=== PATIENT | male | born 1950 | race African-American/Black ===

== ENCOUNTER 2020-11-05 17:14 | Emergency (ER) | payer MEDICARE, OTHER ==
[~2020-11-05] VITALS: Ht 177.8 cm; Wt 54.4 kg
[2020-11-05 18:16] LABS: White Blood Cell 12.1 10^3/uL (4.4-10.8)
[2020-11-05 18:17] LABS: Hemoglobin 8.2 g/dL (13.5-17.5); Mean Corpuscular Hemoglobin 25.1 pg (28.0-32.0); Mean Corpuscular Hgb Conc. 32.7 g/dL (32.0-36.0); Mean Corpuscular Volume 76.8 fL (80.0-100.0); Red Blood Cells 3.26 10^6/uL (4.5-5.90); Red Cell Distribution Width 22.2 % (11.8-14.3)
[2020-11-05 18:19] LABS: Band Neutrophils % (manual) 0; Basophils % (manual) 0 (0.0-2.0); Blast Cells 0; Eosinophils % (manual) 0 (0-7); Metamyelocytes % 0; Myelocytes % 0; Promyelocytes % 0; Reactive Lymphocytes 0
[2020-11-05 18:31] LABS: Albumin 2.4 g/dL (3.4-5.0); Calcium 8.4 mg/dL (8.5-10.1); Potassium 4.2 mmol/L (3.5-5.1)
[2020-11-05 18:35] LABS: BUN/Creatinine Ratio 19.2; Bilirubin, Total 0.1 mg/dL (0.2-1.0); Total Protein 6.6 g/dL (6.4-8.2)
[2020-11-05 20:56] LABS: Lymphocytes % (manual) 20 (10.0-50.0); Monocytes % (manual) 7 (0-12)
[2020-11-05 22:30] VITALS: BP 120/73
[2020-11-06] MEDS ORDERED: LORA0.5T20 GT (16:45)
[2020-11-06] MEDS ORDERED: HYDR-4072 PO (16:45)
[2020-11-06] MEDS ORDERED: LOPE2CAP PO (16:45)
[2020-11-06] MEDS ORDERED: HYOS0.1293 (16:45)
== END 2020-11-05 23:47 | disposition left against medical advice (07) ==
LOC: ER 17:14
DX: I96 Gangrene, not elsewhere classified (principal); M79.671 Pain in right foot; M79.672 Pain in left foot; F17.210 Nicotine dependence, cigarettes, uncomplicated
CPT/HCPCS: 36415; 73562; 73630; 73700; 80053; 83605; 83735; 85007; 85027

== ENCOUNTER 2020-11-06 08:37 | Inpatient (IN) | payer MEDICARE, OTHER ==
[~2020-11-06] VITALS: Ht 177.8 cm; Wt 47.2 kg
[2020-11-06] MEDS ORDERED: SODIUM CHLORIDE 0.9% 1,000 ML IV ONE ×2 (09:00→13:45)
[2020-11-06] MEDS ORDERED: PIPERACILLIN-TAZOB 3.375GM 100 ML IV ONE (09:00)
[2020-11-06 10:19] LABS: Eosinophils # (auto) 0.2 10 ^3/uL (0-0.8); Hematocrit 23.2 % (41.0-53.0); Hemoglobin 7.5 g/dL (13.5-17.5); Mean Corpuscular Hemoglobin 24.7 pg (28.0-32.0); Monocytes # (auto) 1.2 10 ^3/uL (0-1.3)
[2020-11-06 10:20] LABS: Basophils # (auto) 0.2 10 ^3/uL (0-0.2); Basophils % (auto) 1.4 % (0.0-2.0); Eosinophils % (auto) 1.9 % (0.0-7.0); Lymphocytes % (auto) 16.9 % (10.0-50.0); Mean Corpuscular Hgb Conc. 32.1 g/dL (32.0-36.0); Monocytes % (auto) 10.2 % (0.0-12.0); Neutrophils # (auto) 8.4 10 ^3/uL (1.6-8.6); Neutrophils % (auto) 69.6 % (37.0-80.0); Platelet Count (auto) 385 10^3/uL (140-450); Red Blood Cells 3.02 10^6/uL (4.5-5.90); White Blood Cell 12.1 10^3/uL (4.4-10.8)
[2020-11-06 10:22] LABS: Red Cell Distribution Width 22.3 % (11.8-14.3)
[2020-11-06 10:33] LABS: INR 0.96 (0.9-1.15); Partial Thromboplastin Time 25.2 sec (23.0-31.2)
[2020-11-06 10:43] LABS: Albumin 2.2 g/dL (3.4-5.0); Anion Gap 7 (5-15); Blood Urea Nitrogen 13 mg/dL (7-18); Calcium 8.1 mg/dL (8.5-10.1); Carbon Dioxide 27 mmol/L (21-32); Chloride 104 mmol/L (98-107); Glucose 86 mg/dL (74-106); Potassium 3.2 mmol/L (3.5-5.1); Sodium 138 mmol/L (136-145)
[2020-11-06 10:51] LABS: Alanine Aminotransferase 7 U/L (16-61); Alkaline Phosphatase 92 U/L (45-117); Aspartate Aminotransferase 6 U/L (15-37); BUN/Creatinine Ratio 25.5; Bilirubin, Total 0.1 mg/dL (0.2-1.0); GFR African American 208 mL/min; GFR Non-African American 172 mL/min
[2020-11-06] MEDS ORDERED: ONDANSETRON HCL 4 MG/2 ML VIAL IV ONE (11:15)
[2020-11-06] MEDS ORDERED: MORPHINE SULFATE 4 MG/ML SYR/VIAL IV ONE (11:15)
[2020-11-06] MEDS ORDERED: MORPHINE SULF INJ 2 MG/ML SYRINGE 1ML IV PRN (13:30)
[2020-11-06] MEDS ORDERED: NITROGLYCERIN 0.4 MG SL TAB SL PRN (13:30)
[2020-11-06 13:35] LABS: Urine Bacteria MOD /hpf (None Seen); Urine Blood Negative /uL (Negative); Urine Mucus FEW (None Seen); Urine Specific Gravity 1.026 (1.001-1.035); Urine WBC 29 /hpf (0 - 3)
[2020-11-06] MEDS ORDERED: TETANUS-DIPTH-ACEL PERTUSSIS 0.5ML SYR Tdap IM ONE (13:45)
[2020-11-06] MEDS: POTASSIUM CHL 20MEQ/100ML 100 ML IV SCH ×2 (13:45→16:06)
[2020-11-06] MEDS ORDERED: hydrALAZINE HCL 20 MG/ML VL IV PRN (13:45)
[2020-11-06] MEDS ORDERED: LORazepam 2MG/ML-1ML VIAL IV PRN (13:45)
[2020-11-06] MEDS ORDERED: ONDANSETRON HCL 4 MG/2 ML VIAL IV PRN (13:45)
[2020-11-06 14:09] LABS: Hematocrit 24.4 % (41.0-53.0)
[2020-11-06] MEDS: MORPHINE SULF INJ 2 MG/ML SYRINGE 1ML IV PRN ×2 (16:30→19:52)
[2020-11-06] MEDS ORDERED: HYDR-4072 PO (16:45)
[2020-11-06] MEDS ORDERED: HYOS0.1293 (16:45)
[2020-11-06] MEDS ORDERED: LORA0.5T20 GT (16:45)
[2020-11-06] MEDS ORDERED: LOPE2CAP PO (16:45)
[2020-11-06 17:00] VITALS: BP 133/78
[2020-11-06] MEDS: PIPERACILLIN-TAZOB 3.375GM 100 ML IV SCH (17:38)
[2020-11-06 20:00] VITALS: BP 125/53
[2020-11-06] MEDS: PANTOPRAZOLE 40 MG/10 ML VIAL INJ IV SCH (21:57)
[2020-11-06 22:00] VITALS: BP 125/53
[2020-11-06 22:37] LABS: Hematocrit 25.5 % (41.0-53.0); Hemoglobin 8.2 g/dL (13.5-17.5)
[2020-11-07] MEDS: PIPERACILLIN-TAZOB 3.375GM 100 ML IV SCH ×4 (00:05→18:29)
[2020-11-07 01:38] LABS: Hematocrit 25.9 % (41.0-53.0); Hemoglobin 8.2 g/dL (13.5-17.5)
[2020-11-07 05:01] VITALS: BP 140/85
[2020-11-07 05:46] LABS: Basophils # (auto) 0.1 10 ^3/uL (0-0.2); Eosinophils # (auto) 0.2 10 ^3/uL (0-0.8); Hemoglobin 8.6 g/dL (13.5-17.5)
[2020-11-07 05:48] LABS: Basophils % (auto) 0.7 % (0.0-2.0); Eosinophils % (auto) 1.8 % (0.0-7.0); Hematocrit 25.6 % (41.0-53.0); Lymphocytes # (auto) 2.2 10 ^3/uL (0.4-5.4); Lymphocytes % (auto) 19.4 % (10.0-50.0); Mean Corpuscular Hemoglobin 25.8 pg (28.0-32.0); Mean Corpuscular Hgb Conc. 33.5 g/dL (32.0-36.0); Mean Corpuscular Volume 77.1 fL (80.0-100.0); Monocytes # (auto) 1.1 10 ^3/uL (0-1.3); Neutrophils # (auto) 7.9 10 ^3/uL (1.6-8.6); Neutrophils % (auto) 68.1 % (37.0-80.0); Nucleated Red Blood Cells % 0.1 %; Platelet Count (auto) 434 10^3/uL (140-450); Red Blood Cells 3.33 10^6/uL (4.5-5.90); White Blood Cell 11.5 10^3/uL (4.4-10.8)
[2020-11-07 06:04] LABS: Potassium 3.9 mmol/L (3.5-5.1); Red Cell Distribution Width 22.7 % (11.8-14.3)
[2020-11-07 06:24] LABS: Albumin 2.2 g/dL (3.4-5.0); BUN/Creatinine Ratio 16.7; Bilirubin, Total 0.3 mg/dL (0.2-1.0); Calcium 8.5 mg/dL (8.5-10.1); Total Protein 6.3 g/dL (6.4-8.2)
[2020-11-07 08:00] VITALS: BP 140/85
[2020-11-07 08:42] VITALS: BP 123/83
[2020-11-07] MEDS: PANTOPRAZOLE 40 MG/10 ML VIAL INJ IV SCH ×2 (09:16→22:55)
[2020-11-07] MEDS: ENOXAPARIN SOD 40 MG/0.4 ML SYRINGE SC SCH (09:16)
[2020-11-07] MEDS: MORPHINE SULF INJ 2 MG/ML SYRINGE 1ML IV PRN ×3 (09:17→23:08)
[2020-11-07 09:58] LABS: Cholesterol 156 mg/dL (< 200); Triglycerides 107 mg/dL (< 150)
[2020-11-07] MEDS: ASPirin 81 mg TAB PO SCH (10:00)
[2020-11-07 10:01] LABS: HDL Cholesterol 54 mg/dL (40-59); LDL Cholesterol 86 mg/dL (< 100)
[2020-11-07] MEDS: NICOTINE 14 MG/24HR TOPICAL PATCH TD ONE ×2 (12:45→17:58)
[2020-11-07 13:00] VITALS: BP 103/71
[2020-11-07 14:15] LABS: Hemoglobin 8.5 g/dL (13.5-17.5)
[2020-11-07 17:00] VITALS: BP 97/67
[2020-11-07 19:26] LABS: Hematocrit 24.6 % (41.0-53.0)
[2020-11-07] MEDS: NICOTINE 21MG/24 HR TOPICAL PATCH TD SCH (21:41)
[2020-11-07 22:00] VITALS: BP 102/58
[2020-11-07] MEDS: ATORVASTATIN 20 MG TAB PO SCH (22:55)
[2020-11-08] MEDS: PIPERACILLIN-TAZOB 3.375GM 100 ML IV SCH ×5 (00:04→23:31)
[2020-11-08 02:39] LABS: Hematocrit 22.3 % (41.0-53.0); Hemoglobin 7.5 g/dL (13.5-17.5)
[2020-11-08] MEDS: MORPHINE SULF INJ 2 MG/ML SYRINGE 1ML IV PRN ×2 (03:21→10:10)
[2020-11-08 05:00] VITALS: BP 101/73
[2020-11-08 06:31] LABS: Hemoglobin 7.5 g/dL (13.5-17.5); White Blood Cell 9.1 10^3/uL (4.4-10.8)
[2020-11-08 06:36] LABS: Hematocrit 22.9 % (41.0-53.0); Mean Corpuscular Hemoglobin 25.5 pg (28.0-32.0); Mean Corpuscular Hgb Conc. 32.9 g/dL (32.0-36.0); Mean Corpuscular Volume 77.5 fL (80.0-100.0); Platelet Count (auto) 456 10^3/uL (140-450); Red Blood Cells 2.95 10^6/uL (4.5-5.90)
[2020-11-08 06:38] LABS: Calcium 8.6 mg/dL (8.5-10.1); Potassium 3.8 mmol/L (3.5-5.1)
[2020-11-08 06:40] LABS: BUN/Creatinine Ratio 20.4
[2020-11-08 06:53] LABS: Basophils % (manual) 0 (0.0-2.0); Blast Cells 0; Metamyelocytes % 0; Myelocytes % 0; Promyelocytes % 0; Reactive Lymphocytes 0
[2020-11-08 09:00] VITALS: BP 101/62
[2020-11-08 09:55] LABS: Band Neutrophils % (manual) 2; Eosinophils % (manual) 2 (0-7); Lymphocytes % (manual) 20 (10.0-50.0); Monocytes % (manual) 7 (0-12)
[2020-11-08] MEDS ORDERED: NICOTINE 14 MG/24HR TOPICAL PATCH TD SCH (10:00)
[2020-11-08] MEDS: ENOXAPARIN SOD 40 MG/0.4 ML SYRINGE SC SCH (10:00)
[2020-11-08] MEDS: PANTOPRAZOLE 40 MG/10 ML VIAL INJ IV SCH ×2 (10:07→21:51)
[2020-11-08] MEDS: DOCUSATE SOD 100 MG CAP PO SCH ×2 (10:07→21:51)
[2020-11-08] MEDS: ASPirin 81 mg TAB PO SCH (10:08)
[2020-11-08] MEDS: NICOTINE 21MG/24 HR TOPICAL PATCH TD SCH (10:09)
[2020-11-08] MEDS ORDERED: LACTULOSE 20Gm/30ML SOLN PO PRN (11:15)
[2020-11-08 13:00] VITALS: BP 115/70
[2020-11-08 13:47] LABS: Hematocrit 24.4 % (41.0-53.0); Hemoglobin 7.9 g/dL (13.5-17.5)
[2020-11-08 16:40] VITALS: BP 119/76
[2020-11-08] MEDS: IBUPROFEN 600 MG TAB PO SCH ×2 (17:14→21:52)
[2020-11-08 19:58] LABS: Hematocrit 23.9 % (41.0-53.0)
[2020-11-08] MEDS: ATORVASTATIN 20 MG TAB PO SCH (21:51)
[2020-11-08 22:00] VITALS: BP 95/63
[2020-11-09 05:00] VITALS: BP 105/63
[2020-11-09] MEDS: IBUPROFEN 600 MG TAB PO SCH ×4 (06:03→21:28)
[2020-11-09] MEDS: PIPERACILLIN-TAZOB 3.375GM 100 ML IV SCH ×3 (06:03→18:41)
[2020-11-09 06:50] LABS: Basophils # (auto) 0 10 ^3/uL (0-0.2); Eosinophils # (auto) 0.2 10 ^3/uL (0-0.8); Hemoglobin 7.9 g/dL (13.5-17.5); White Blood Cell 9.3 10^3/uL (4.4-10.8)
[2020-11-09 06:54] LABS: Basophils % (auto) 0.4 % (0.0-2.0); Eosinophils % (auto) 2.1 % (0.0-7.0); Lymphocytes # (auto) 2.1 10 ^3/uL (0.4-5.4); Lymphocytes % (auto) 22.7 % (10.0-50.0); Mean Corpuscular Hgb Conc. 32.9 g/dL (32.0-36.0); Mean Corpuscular Volume 76.1 fL (80.0-100.0); Monocytes % (auto) 10.6 % (0.0-12.0); Neutrophils % (auto) 64.2 % (37.0-80.0); Nucleated Red Blood Cells % 0.1 %; Platelet Count (auto) 518 10^3/uL (140-450); Red Blood Cells 3.16 10^6/uL (4.5-5.90); Red Cell Distribution Width 22.8 % (11.8-14.3)
[2020-11-09 07:11] LABS: Calcium 8.7 mg/dL (8.5-10.1); Potassium 3.8 mmol/L (3.5-5.1)
[2020-11-09 07:13] LABS: BUN/Creatinine Ratio 20.7
[2020-11-09 09:00] VITALS: BP 100/62
[2020-11-09] MEDS: ENOXAPARIN SOD 40 MG/0.4 ML SYRINGE SC SCH (09:56)
[2020-11-09] MEDS: PANTOPRAZOLE 40 MG/10 ML VIAL INJ IV SCH ×2 (10:14→21:27)
[2020-11-09] MEDS: DOCUSATE SOD 100 MG CAP PO SCH ×2 (10:14→21:27)
[2020-11-09] MEDS: NICOTINE 21MG/24 HR TOPICAL PATCH TD SCH (10:15)
[2020-11-09] MEDS: ASPirin 81 mg TAB PO SCH (10:45)
[2020-11-09 13:00] VITALS: BP 106/71
[2020-11-09 17:00] VITALS: BP 110/67
[2020-11-09 20:00] VITALS: BP 93/63
[2020-11-09] MEDS: ATORVASTATIN 20 MG TAB PO SCH (21:27)
[2020-11-09 22:00] VITALS: BP 93/63
[2020-11-10] VITALS (7 sets, daily range): BP systolic 91–124; BP diastolic 55–81
[2020-11-10] MEDS: PIPERACILLIN-TAZOB 3.375GM 100 ML IV SCH ×5 (00:19→23:34)
[2020-11-10 03:03] LABS: INR 0.93 (0.9-1.15)
[2020-11-10] MEDS: IBUPROFEN 600 MG TAB PO SCH ×4 (06:03→21:41)
[2020-11-10 06:50] LABS: Basophils # (auto) 0.1 10 ^3/uL (0-0.2); Eosinophils # (auto) 0.2 10 ^3/uL (0-0.8); White Blood Cell 8.5 10^3/uL (4.4-10.8)
[2020-11-10 07:04] LABS: Eosinophils % (auto) 2.7 % (0.0-7.0); Hematocrit 24.7 % (41.0-53.0); Hemoglobin 8.2 g/dL (13.5-17.5); INR 0.95 (0.9-1.15); Lymphocytes # (auto) 1.8 10 ^3/uL (0.4-5.4); Lymphocytes % (auto) 21.6 % (10.0-50.0); Mean Corpuscular Hemoglobin 25.3 pg (28.0-32.0); Mean Corpuscular Hgb Conc. 33.4 g/dL (32.0-36.0); Mean Corpuscular Volume 75.9 fL (80.0-100.0); Monocytes # (auto) 1.1 10 ^3/uL (0-1.3); Monocytes % (auto) 12.7 % (0.0-12.0); Neutrophils # (auto) 5.3 10 ^3/uL (1.6-8.6); Partial Thromboplastin Time 24.4 sec (23.0-31.2); Platelet Count (auto) 592 10^3/uL (140-450); Red Blood Cells 3.25 10^6/uL (4.5-5.90)
[2020-11-10 07:05] LABS: Red Cell Distribution Width 22.9 % (11.8-14.3)
[2020-11-10 07:12] LABS: BUN/Creatinine Ratio 24.1; Calcium 9.3 mg/dL (8.5-10.1)
[2020-11-10] MEDS: ENOXAPARIN SOD 40 MG/0.4 ML SYRINGE SC SCH (09:49)
[2020-11-10] MEDS ORDERED: IODIXANOL 320MG/ML 100ML BTL IV ONE (10:25)
[2020-11-10] MEDS ORDERED: LIDOCAINE 2%HCL (LOCAL ANESTH.) INJ 20ML MDV ONE (10:25)
[2020-11-10] MEDS ORDERED: fentaNYL CITRATE 100 MCG/2 ML VL ONE (10:31)
[2020-11-10] MEDS ORDERED: ANGIOMAX 250 MG VIAL IV ONE (10:31)
[2020-11-10] MEDS ORDERED: MIDAZOLAM HCL 1MG/1ML-2 ML VIAL ONE (10:32)
[2020-11-10] MEDS ORDERED: SODIUM CHL 0.9% 50 ML ONE (10:32)
[2020-11-10] MEDS ORDERED: diphenhdrAMINE HCL 50 MG/1 ML VL ONE (10:58)
[2020-11-10] MEDS ORDERED: ACETAMINOPHEN 500 MG TAB PO PRN (12:45)
[2020-11-10] MEDS ORDERED: ONDANSETRON HCL 4 MG/2 ML VIAL IV PRN (12:45)
[2020-11-10] MEDS: PANTOPRAZOLE 40 MG/10 ML VIAL INJ IV SCH ×2 (14:08→21:41)
[2020-11-10] MEDS: DOCUSATE SOD 100 MG CAP PO SCH ×2 (14:08→21:42)
[2020-11-10] MEDS: NICOTINE 21MG/24 HR TOPICAL PATCH TD SCH (14:10)
[2020-11-10] MEDS: SODIUM CHLOR 0.9% PF (SALINE LOCK) 10ML VIAL/SYR IV SCH ×2 (14:11→21:41)
[2020-11-10] MEDS: ASPirin 81 mg TAB PO SCH (14:12)
[2020-11-10] MEDS: ATORVASTATIN 20 MG TAB PO SCH (21:41)
[2020-11-11 05:00] VITALS: BP 108/65
[2020-11-11] MEDS: SODIUM CHLOR 0.9% PF (SALINE LOCK) 10ML VIAL/SYR IV SCH ×3 (05:59→21:48)
[2020-11-11] MEDS: PIPERACILLIN-TAZOB 3.375GM 100 ML IV SCH ×3 (05:59→17:52)
[2020-11-11] MEDS: IBUPROFEN 600 MG TAB PO SCH ×4 (06:00→21:48)
[2020-11-11 08:00] LABS: Basophils # (auto) 0.1 10 ^3/uL (0-0.2); Basophils % (auto) 0.7 % (0.0-2.0); Eosinophils # (auto) 0.2 10 ^3/uL (0-0.8); Hemoglobin 7.2 g/dL (13.5-17.5)
[2020-11-11 08:02] LABS: Eosinophils % (auto) 2.2 % (0.0-7.0); Hematocrit 21.9 % (41.0-53.0); Lymphocytes % (auto) 20.3 % (10.0-50.0); Mean Corpuscular Hemoglobin 25.1 pg (28.0-32.0); Mean Corpuscular Hgb Conc. 32.8 g/dL (32.0-36.0); Mean Corpuscular Volume 76.7 fL (80.0-100.0); Monocytes # (auto) 1.4 10 ^3/uL (0-1.3); Monocytes % (auto) 13.9 % (0.0-12.0); Neutrophils # (auto) 6.2 10 ^3/uL (1.6-8.6); Neutrophils % (auto) 62.9 % (37.0-80.0); Platelet Count (auto) 632 10^3/uL (140-450); Red Blood Cells 2.86 10^6/uL (4.5-5.90); White Blood Cell 9.9 10^3/uL (4.4-10.8)
[2020-11-11 08:08] LABS: Red Cell Distribution Width 23.6 % (11.8-14.3)
[2020-11-11 08:22] LABS: Calcium 8.3 mg/dL (8.5-10.1); Potassium 3.5 mmol/L (3.5-5.1)
[2020-11-11 09:00] VITALS: BP 108/65
[2020-11-11] MEDS: CLOPIDOGREL BISULFATE 75 MG TAB PO SCH (10:00)
[2020-11-11] MEDS: ENOXAPARIN SOD 40 MG/0.4 ML SYRINGE SC SCH (10:00)
[2020-11-11] MEDS: DOCUSATE SOD 100 MG CAP PO SCH ×3 (10:00→21:55)
[2020-11-11] MEDS: PANTOPRAZOLE 40 MG/10 ML VIAL INJ IV SCH ×2 (10:50→21:48)
[2020-11-11] MEDS: ASPirin 81 mg TAB PO SCH (10:50)
[2020-11-11] MEDS: NICOTINE 21MG/24 HR TOPICAL PATCH TD SCH (10:53)
[2020-11-11 12:49] VITALS: BP 110/69
[2020-11-11 16:46] VITALS: BP 126/76
[2020-11-11 20:00] VITALS: BP 105/69
[2020-11-11] MEDS: ATORVASTATIN 20 MG TAB PO SCH (21:48)
[2020-11-11 22:00] VITALS: BP 105/69
[2020-11-12] MEDS: PIPERACILLIN-TAZOB 3.375GM 100 ML IV SCH ×3 (00:09→12:00)
[2020-11-12 05:00] VITALS: BP 114/71
[2020-11-12] MEDS: SODIUM CHLOR 0.9% PF (SALINE LOCK) 10ML VIAL/SYR IV SCH (05:31)
[2020-11-12] MEDS: IBUPROFEN 600 MG TAB PO SCH ×2 (06:15→12:27)
[2020-11-12 06:24] LABS: Basophils # (auto) 0.1 10 ^3/uL (0-0.2); Basophils % (auto) 0.7 % (0.0-2.0); Eosinophils # (auto) 0.3 10 ^3/uL (0-0.8); Eosinophils % (auto) 3.1 % (0.0-7.0); Hematocrit 24.3 % (41.0-53.0); Hemoglobin 7.8 g/dL (13.5-17.5); Lymphocytes # (auto) 2.4 10 ^3/uL (0.4-5.4); Lymphocytes % (auto) 23.7 % (10.0-50.0); Mean Corpuscular Hemoglobin 24.7 pg (28.0-32.0); Mean Corpuscular Hgb Conc. 32.2 g/dL (32.0-36.0); Mean Corpuscular Volume 76.8 fL (80.0-100.0); Monocytes # (auto) 1.2 10 ^3/uL (0-1.3); Monocytes % (auto) 12.4 % (0.0-12.0); Neutrophils % (auto) 60.1 % (37.0-80.0); Platelet Count (auto) 747 10^3/uL (140-450); Red Blood Cells 3.16 10^6/uL (4.5-5.90); White Blood Cell 9.9 10^3/uL (4.4-10.8)
[2020-11-12 06:25] LABS: BUN/Creatinine Ratio 25.4; Calcium 8.9 mg/dL (8.5-10.1)
[2020-11-12 06:55] LABS: Red Cell Distribution Width 23.7 % (11.8-14.3)
[2020-11-12] MEDS ORDERED: ceFAZolin 1GM/50ML 50 ML IV ONE (07:55)
[2020-11-12 09:00] VITALS: BP 112/66
[2020-11-12] MEDS ORDERED: ceFAZolin 1GM VL ONE (09:12)
[2020-11-12] MEDS ORDERED: ROPIVACAINE 0.5% (5MG/ML) 20ML AMPULE IJ ONE (09:12)
[2020-11-12] MEDS ORDERED: LABETALOL HCL 5 MG/ML 4ML SYRINGE IV PRN (09:30)
[2020-11-12] MEDS ORDERED: ePHEDrine SULFATE 50 MG/ML AMP IV PRN (09:30)
[2020-11-12] MEDS ORDERED: MORPHINE SULFATE 4 MG/ML SYR/VIAL IV PRN (09:30)
[2020-11-12] MEDS ORDERED: MIDAZOLAM HCL 1MG/1ML-2 ML VIAL IV PRN (09:30)
[2020-11-12] MEDS ORDERED: ONDANSETRON HCL 4 MG/2 ML VIAL IV PRN (09:30)
[2020-11-12] MEDS ORDERED: ACCU-CHEK COMFORT CURVE STRIP VI ONE (09:30)
[2020-11-12] MEDS ORDERED: MIDAZOLAM HCL 1MG/1ML-2 ML VIAL ONE (09:35)
[2020-11-12] MEDS ORDERED: fentaNYL CITRATE 100 MCG/2 ML VL ONE (09:35)
[2020-11-12] MEDS ORDERED: MEPERIDINE HCL (25 MG/ML) 1ML VIAL ONE (09:35)
[2020-11-12] MEDS ORDERED: DexAMETHasone SOD PHOS 10MG/1ML VIAL INJ ONE (09:38)
[2020-11-12] MEDS ORDERED: PROPOFOL 10 MG/ML 20 ML IV ONE (09:48)
[2020-11-12] MEDS: ENOXAPARIN SOD 40 MG/0.4 ML SYRINGE SC SCH (10:00)
[2020-11-12] MEDS: DOCUSATE SOD 100 MG CAP PO SCH (10:00)
[2020-11-12] MEDS: PANTOPRAZOLE 40 MG/10 ML VIAL INJ IV SCH (10:00)
[2020-11-12] MEDS ORDERED: AMOX500T86 PO (11:55)
[2020-11-12] MEDS: NICOTINE 21MG/24 HR TOPICAL PATCH TD SCH (12:27)
[2020-11-12] MEDS: CLOPIDOGREL BISULFATE 75 MG TAB PO SCH (12:27)
[2020-11-12 13:00] VITALS: BP 108/72
[2020-11-12] MEDS ORDERED: ATOR20TA50 PO (13:18)
[2020-11-12] MEDS ORDERED: CLOP75TA28 PO (13:18)
== END 2020-11-12 14:45 | disposition home or self-care (01) | DRG 853 ==
LOC: ER 08:37 → TELE 08:38 → TELE-EAST 15:57 → TELE-WESTW 11-07 10:23
PROVIDERS: ADMIT Family Medicine; ATTEND Internal Medicine Pulmonary Disease
PROC: 047K3Z1 Dilation of Right Femoral Artery using Drug-Coated Balloon, Percutaneous Approach (ICD-10-PCS; principal; 2020-11-10)
PROC: 04CK3ZZ Extirpation of Matter from Right Femoral Artery, Percutaneous Approach (ICD-10-PCS; 2020-11-10)
PROC: B41 Imaging, Lower Arteries, Fluoroscopy (ICD-10-PCS; 2020-11-10)
PROC: 0Y6P0Z0 Detachment at Right 1st Toe, Complete, Open Approach (ICD-10-PCS; 2020-11-12)
PROC: 0Y6R0Z0 Detachment at Right 2nd Toe, Complete, Open Approach (ICD-10-PCS; 2020-11-12)
DX: A41.9 Sepsis, unspecified organism (principal); N17.0 Acute kidney failure with tubular necrosis; E44.0 Moderate protein-calorie malnutrition; D62 Acute posthemorrhagic anemia; I70.261 Atherosclerosis of native arteries of extremities with gangrene, right leg; E87.1 Hypo-osmolality and hyponatremia; Z68.1 Body mass index [BMI] 19.9 or less, adult; M19.90 Unspecified osteoarthritis, unspecified site; I77.1 Stricture of artery; M20.12 Hallux valgus (acquired), left foot; E87.6 Hypokalemia; Z20.822 Contact with and (suspected) exposure to COVID-19; D50.9 Iron deficiency anemia, unspecified; M20.11 Hallux valgus (acquired), right foot; S92.912A Unspecified fracture of left toe(s), initial encounter for closed fracture; W06.XXXA Fall from bed, initial encounter; F17.210 Nicotine dependence, cigarettes, uncomplicated; K59.00 Constipation, unspecified; N18.9 Chronic kidney disease, unspecified; Z71.6 Tobacco abuse counseling; Z23 Encounter for immunization; Z74.01 Bed confinement status; Z83.3 Family history of diabetes mellitus; Z85.038 Personal history of other malignant neoplasm of large intestine; Z99.3 Dependence on wheelchair; Y93.89 Activity, other specified; Y92.89 Other specified places as the place of occurrence of the external cause; Y99.8 Other external cause status
CPT/HCPCS: 36415; 37224; 71045; 73562; 73630; 73700; 80048; 80053; 80061; 81001; 82270; 83605; 83735; 84443; 84484; 85007; 85014; 85018; 85025; 85027; 85610; 85730; 86850; 86900; 86901; 87040; 87426; 90715; 93925; 96365; 96366; 99152; C9113; G0378; J0690; J1100; J2250; J2405; J2543; J2704; J3480; Q9967

== ENCOUNTER 2020-12-18 18:17 | Inpatient (IN) | payer MEDICARE, OTHER ==
[~2020-12-18] VITALS: Ht 175.3 cm; Wt 51.3 kg
[~2020-12-18 18:17] MED LIST: AMOX500T86 PO; ATOR20TA50 PO; CLOP75TA28 PO; HYDR-4072 PO; HYOS0.1293; LOPE2CAP PO; LORA0.5T20 GT
[2020-12-18 19:46] LABS: Basophils # (auto) 0.1 10 ^3/uL (0-0.2); Basophils % (auto) 1.4 % (0.0-2.0); Eosinophils # (auto) 0.3 10 ^3/uL (0-0.8); Hematocrit 22.5 % (41.0-53.0); Lymphocytes # (auto) 3.1 10 ^3/uL (0.4-5.4); Lymphocytes % (auto) 34.4 % (10.0-50.0); Mean Corpuscular Hemoglobin 24.3 pg (28.0-32.0); Mean Corpuscular Hgb Conc. 30.7 g/dL (32.0-36.0); Mean Corpuscular Volume 79.2 fL (80.0-100.0); Monocytes % (auto) 11.1 % (0.0-12.0); Neutrophils # (auto) 4.6 10 ^3/uL (1.6-8.6); Neutrophils % (auto) 50.1 % (37.0-80.0); Nucleated Red Blood Cells % 0.8 %; Red Blood Cells 2.83 10^6/uL (4.5-5.90); White Blood Cell 9.1 10^3/uL (4.4-10.8)
[2020-12-18 19:48] LABS: INR 0.96 (0.9-1.15); Partial Thromboplastin Time 23.9 sec (23.0-31.2)
[2020-12-18 19:51] LABS: Hemoglobin 6.9 g/dL (13.5-17.5)
[2020-12-18 19:53] LABS: Albumin 2.8 g/dL (3.4-5.0); Anion Gap 12 (5-15); Blood Urea Nitrogen 9 mg/dL (7-18); Calcium 8.1 mg/dL (8.5-10.1); Carbon Dioxide 23 mmol/L (21-32); Chloride 110 mmol/L (98-107); Glucose 55 mg/dL (74-106); Potassium 3.8 mmol/L (3.5-5.1); Sodium 145 mmol/L (136-145)
[2020-12-18 19:59] LABS: Alanine Aminotransferase 12 U/L (16-61); Alkaline Phosphatase 135 U/L (45-117); Aspartate Aminotransferase 20 U/L (15-37); Bilirubin, Total 0.1 mg/dL (0.2-1.0); GFR African American 147 mL/min; GFR Non-African American 121 mL/min; Total Protein 6.9 g/dL (6.4-8.2)
[2020-12-18 23:00] VITALS: BP 127/76
[2020-12-18 23:19] VITALS: BP 131/80
[2020-12-18] MEDS ORDERED: IBUPROFEN 600 MG TAB PO ONE (23:45)
[2020-12-19] VITALS (11 sets, daily range): BP systolic 115–146; BP diastolic 66–90
[2020-12-19] MEDS ORDERED: ACETAMINOPHEN 325 MG TAB PO PRN (01:45)
[2020-12-19] MEDS ORDERED: DOCUSATE SOD 100 MG CAP PO PRN (01:45)
[2020-12-19] MEDS ORDERED: MORPHINE SULFATE INJECTION 2 MG/ML SYRG IV PRN (01:45)
[2020-12-19] MEDS ORDERED: DEXTROSE (50%) 50ML SYRG IV PRN (01:45)
[2020-12-19] MEDS ORDERED: D5W/SOD CHL 0.45% 1,000 ML IV SCH (01:45)
[2020-12-19] MEDS ORDERED: NITROGLYCERIN 0.4 MG SL TAB SL PRN (01:45)
[2020-12-19] MEDS: HYDROcodone-ACET 5/325MG TAB PO PRN ×3 (03:46→21:27)
[2020-12-19] MEDS ORDERED: PNEUMOCOCCAL VACC POLYS 25 MCG/0.5 ML VIAL IM ONE (04:30)
[2020-12-19] MEDS ORDERED: INFLUENZA QUAD 2020-2021 0.5 ML SYRG IM ONE (04:30)
[2020-12-19] MEDS ORDERED: GABA300C10 PO (04:39)
[2020-12-19] MEDS: SODIUM CHLOR 0.9% PF (SALINE LOCK) 10ML VIAL/SYR IV SCH ×3 (05:28→21:19)
[2020-12-19] MEDS ORDERED: IBUP600T27 PO (06:03)
[2020-12-19] MEDS: InsuLIN REG 1unit/0.01ml Soln (100units/ml) SC SCH ×2 (06:04→11:30)
[2020-12-19] MEDS: ACCU-CHEK COMFORT CURVE STRIP VI SCH ×2 (06:04→11:30)
[2020-12-19 08:12] LABS: Basophils # (auto) 0.1 10 ^3/uL (0-0.2); Eosinophils # (auto) 0.2 10 ^3/uL (0-0.8); Lymphocytes # (auto) 1.9 10 ^3/uL (0.4-5.4); Monocytes # (auto) 1.4 10 ^3/uL (0-1.3); Monocytes % (auto) 14.3 % (0.0-12.0); Red Cell Distribution Width 19.7 % (11.8-14.3)
[2020-12-19 08:14] LABS: Basophils % (auto) 0.9 % (0.0-2.0); Eosinophils % (auto) 2.2 % (0.0-7.0); Hemoglobin 9.5 g/dL (13.5-17.5); Lymphocytes % (auto) 20.6 % (10.0-50.0); Mean Corpuscular Hemoglobin 26.2 pg (28.0-32.0); Mean Corpuscular Hgb Conc. 32.9 g/dL (32.0-36.0); Mean Corpuscular Volume 79.7 fL (80.0-100.0); Neutrophils # (auto) 5.8 10 ^3/uL (1.6-8.6); Nucleated Red Blood Cells % 0.7 %; Red Blood Cells 3.64 10^6/uL (4.5-5.90); White Blood Cell 9.4 10^3/uL (4.4-10.8)
[2020-12-19 08:20] LABS: % Iron Saturation 6.3 % (20-55); Albumin 2.6 g/dL (3.4-5.0); Calcium 7.9 mg/dL (8.5-10.1); Potassium 3.7 mmol/L (3.5-5.1)
[2020-12-19 08:23] LABS: BUN/Creatinine Ratio 24.5; Bilirubin, Total 0.3 mg/dL (0.2-1.0); Total Protein 6.5 g/dL (6.4-8.2)
[2020-12-19] MEDS ORDERED: ZINC SULFATE 220mg CAP or TAB PO SCH (10:00)
[2020-12-19] MEDS ORDERED: ENOXAPARIN SOD 40 MG/0.4 ML SYRINGE SC SCH (10:00)
[2020-12-19] MEDS ORDERED: ASCORBIC ACID 500 MG TAB PO SCH (10:00)
[2020-12-19] MEDS ORDERED: FAMOTIDINE 20 MG TAB PO SCH (10:00)
[2020-12-19] MEDS ORDERED: MULTIPLE VITAMIN TAB PO SCH (10:00)
[2020-12-19 10:03] LABS: Folate (Folic Acid) 8.59 ng/mL (5.38-24)
[2020-12-19 12:55] LABS: Urine Blood Negative /uL (Negative); Urine Specific Gravity 1.028 (1.001-1.035)
[2020-12-19 12:57] LABS: Urine WBC 2 /hpf (0 - 3)
[2020-12-19 12:58] LABS: Urine Bacteria MOD /hpf (None Seen)
[2020-12-19] MEDS ORDERED: CYANOCOBALAMIN (B-12) 1000 MCG/1 ML VIAL SUBCUT ONE (18:15)
[2020-12-19] MEDS: PANTOPRAZOLE 40 MG/10 ML VIAL INJ IV SCH (21:19)
[2020-12-20 05:00] VITALS: BP 143/86
[2020-12-20] MEDS: SODIUM CHLOR 0.9% PF (SALINE LOCK) 10ML VIAL/SYR IV SCH ×3 (05:47→21:15)
[2020-12-20 07:44] LABS: Basophils # (auto) 0.1 10 ^3/uL (0-0.2); Basophils % (auto) 0.6 % (0.0-2.0); Lymphocytes # (auto) 2.1 10 ^3/uL (0.4-5.4); Mean Corpuscular Hemoglobin 25.7 pg (28.0-32.0); Monocytes # (auto) 1.2 10 ^3/uL (0-1.3); Nucleated Red Blood Cells % 0.1 %; Red Cell Distribution Width 19.7 % (11.8-14.3)
[2020-12-20 07:46] LABS: Eosinophils # (auto) 0.2 10 ^3/uL (0-0.8); Eosinophils % (auto) 1.5 % (0.0-7.0); Hematocrit 30.2 % (41.0-53.0); Hemoglobin 9.8 g/dL (13.5-17.5); Mean Corpuscular Hgb Conc. 32.6 g/dL (32.0-36.0); Mean Corpuscular Volume 78.8 fL (80.0-100.0); Monocytes % (auto) 11.2 % (0.0-12.0); Neutrophils # (auto) 7.6 10 ^3/uL (1.6-8.6); Neutrophils % (auto) 67.7 % (37.0-80.0); Red Blood Cells 3.83 10^6/uL (4.5-5.90); White Blood Cell 11.2 10^3/uL (4.4-10.8)
[2020-12-20 07:59] LABS: Albumin 2.7 g/dL (3.4-5.0); Calcium 8.6 mg/dL (8.5-10.1); Cholesterol 151 mg/dL (< 200); Potassium 3.6 mmol/L (3.5-5.1)
[2020-12-20 08:01] LABS: HDL Cholesterol 66 mg/dL (40-59); LDL Cholesterol 68 mg/dL (< 100); Triglycerides 105 mg/dL (< 150)
[2020-12-20 08:03] LABS: BUN/Creatinine Ratio 18.4; Bilirubin, Total 0.3 mg/dL (0.2-1.0); Total Protein 6.7 g/dL (6.4-8.2)
[2020-12-20 08:36] VITALS: BP 135/81
[2020-12-20] MEDS: PANTOPRAZOLE 40 MG/10 ML VIAL INJ IV SCH (08:51)
[2020-12-20] MEDS ORDERED: LIDOCAINE VISCOUS 2% 15ML UD ONE (08:55)
[2020-12-20] MEDS ORDERED: SODIUM CHLORIDE LOCK 10 ML ONE (08:55)
[2020-12-20] MEDS ORDERED: diphenhdrAMINE HCL 50 MG/1 ML VL ONE (08:57)
[2020-12-20] MEDS: fentaNYL CITRATE 100 MCG/2 ML VL ONE ×2 (09:18→09:23)
[2020-12-20] MEDS: MIDAZOLAM HCL 5 MG/ML-1ML VIAL ONE ×2 (09:18→09:23)
[2020-12-20] MEDS: PANTOPRAZOLE 40 MG TAB PO SCH ×2 (10:00→21:15)
[2020-12-20] MEDS: CYANOCOBALAMIN 500 MCG TAB PO SCH (12:45)
[2020-12-20] MEDS: FOLIC ACID 1 MG, MULTIPLE VITAMIN 10 ML, MAGNESIUM SULF SDV 50% 8 MEQ, THIAMINE INJ 100... INJ SCH ×5 (12:48)
[2020-12-20 13:00] VITALS: BP 133/78
[2020-12-20 16:40] VITALS: BP 137/86
[2020-12-20 18:19] LABS: Calcium 8.3 mg/dL (8.5-10.1); Potassium 4.1 mmol/L (3.5-5.1)
[2020-12-20 22:00] VITALS: BP 110/76
[2020-12-21 05:00] VITALS: BP 149/91
[2020-12-21] MEDS: SODIUM CHLOR 0.9% PF (SALINE LOCK) 10ML VIAL/SYR IV SCH ×3 (06:10→21:26)
[2020-12-21 06:53] LABS: Basophils # (auto) 0 10 ^3/uL (0-0.2); Basophils % (auto) 0.5 % (0.0-2.0); Eosinophils # (auto) 0.1 10 ^3/uL (0-0.8); Eosinophils % (auto) 1.2 % (0.0-7.0); Hematocrit 31.2 % (41.0-53.0); Hemoglobin 10.1 g/dL (13.5-17.5); Lymphocytes # (auto) 2.1 10 ^3/uL (0.4-5.4); Lymphocytes % (auto) 18.7 % (10.0-50.0); Mean Corpuscular Hemoglobin 25.8 pg (28.0-32.0); Mean Corpuscular Hgb Conc. 32.5 g/dL (32.0-36.0); Mean Corpuscular Volume 79.4 fL (80.0-100.0); Monocytes # (auto) 1.3 10 ^3/uL (0-1.3); Monocytes % (auto) 11.8 % (0.0-12.0); Neutrophils # (auto) 7.5 10 ^3/uL (1.6-8.6); Neutrophils % (auto) 67.8 % (37.0-80.0); Red Blood Cells 3.93 10^6/uL (4.5-5.90); Red Cell Distribution Width 20.2 % (11.8-14.3)
[2020-12-21 09:01] VITALS: BP 146/89
[2020-12-21] MEDS: CYANOCOBALAMIN 500 MCG TAB PO SCH (09:05)
[2020-12-21] MEDS: PANTOPRAZOLE 40 MG TAB PO SCH ×2 (09:05→21:26)
[2020-12-21] MEDS ORDERED: GOLYTELY 4L KIT PO ONE (10:00)
[2020-12-21] MEDS: ONDANSETRON HCL 4 MG/2 ML VIAL IV PRN (11:29)
[2020-12-21] MEDS: FOLIC ACID 1 MG, MULTIPLE VITAMIN 10 ML, MAGNESIUM SULF SDV 50% 8 MEQ, THIAMINE INJ 100... INJ SCH ×5 (13:25)
[2020-12-21 16:38] VITALS: BP 129/80
[2020-12-21] MEDS: HYDROcodone-ACET 5/325MG TAB PO PRN (21:27)
[2020-12-21 22:00] VITALS: BP 116/62
[2020-12-22 05:00] VITALS: BP 132/82
[2020-12-22] MEDS: SODIUM CHLOR 0.9% PF (SALINE LOCK) 10ML VIAL/SYR IV SCH ×3 (05:46→21:27)
[2020-12-22] MEDS: HYDROcodone-ACET 5/325MG TAB PO PRN ×2 (06:33→21:28)
[2020-12-22] MEDS ORDERED: diphenhdrAMINE HCL 50 MG/1 ML VL ONE (08:58)
[2020-12-22 09:00] VITALS: BP 115/77
[2020-12-22] MEDS: PANTOPRAZOLE 40 MG TAB PO SCH ×2 (10:00→21:27)
[2020-12-22] MEDS: CYANOCOBALAMIN 500 MCG TAB PO SCH (10:00)
[2020-12-22] MEDS: FOLIC ACID 1 MG, MULTIPLE VITAMIN 10 ML, MAGNESIUM SULF SDV 50% 8 MEQ, THIAMINE INJ 100... INJ SCH ×5 (11:51)
[2020-12-22 13:00] VITALS: BP 98/59
[2020-12-22] MEDS: MIDAZOLAM HCL 5 MG/ML-1ML VIAL ONE ×2 (15:24→15:32)
[2020-12-22] MEDS: fentaNYL CITRATE 100 MCG/2 ML VL ONE ×2 (15:24→15:32)
[2020-12-22 17:00] VITALS: BP 140/95
[2020-12-22] MEDS: ERGOCALCIFEROL 50,000 UNIT(1.25MG) CAP PO SCH (18:42)
[2020-12-22 22:00] VITALS: BP 104/65
[2020-12-23 05:00] VITALS: BP 109/73
[2020-12-23] MEDS: SODIUM CHLOR 0.9% PF (SALINE LOCK) 10ML VIAL/SYR IV SCH ×3 (06:13→21:50)
[2020-12-23] MEDS: MORPHINE SULFATE 4 MG/ML SYR/VIAL IV PRN ×2 (07:49→21:49)
[2020-12-23 08:52] VITALS: BP 100/72
[2020-12-23] MEDS: PANTOPRAZOLE 40 MG TAB PO SCH ×2 (10:00→21:49)
[2020-12-23] MEDS: CYANOCOBALAMIN 500 MCG TAB PO SCH (10:00)
[2020-12-23] MEDS ORDERED: GOLYTELY 4L KIT PO ONE (10:00)
[2020-12-23] MEDS: CEFTRIAXONE SODIUM 2 GM in D5W 5% 50 ML IV SCH (11:15)
[2020-12-23 12:09] LABS: INR 1.03 (0.9-1.15); Partial Thromboplastin Time 28.5 sec (23.0-31.2)
[2020-12-23] MEDS: FOLIC ACID 1 MG, MULTIPLE VITAMIN 10 ML, MAGNESIUM SULF SDV 50% 8 MEQ, THIAMINE INJ 100... INJ SCH ×5 (12:22)
[2020-12-23 12:44] VITALS: BP 108/67
[2020-12-23 13:33] LABS: Eosinophils # (auto) 0.1 10 ^3/uL (0-0.8); Hemoglobin 9.1 g/dL (13.5-17.5); Mean Corpuscular Hemoglobin 25.6 pg (28.0-32.0); Red Blood Cells 3.57 10^6/uL (4.5-5.90)
[2020-12-23 13:37] LABS: Basophils # (auto) 0.1 10 ^3/uL (0-0.2); Basophils % (auto) 0.4 % (0.0-2.0); Eosinophils % (auto) 0.6 % (0.0-7.0); Hematocrit 28.8 % (41.0-53.0); Lymphocytes # (auto) 1.7 10 ^3/uL (0.4-5.4); Lymphocytes % (auto) 13.3 % (10.0-50.0); Mean Corpuscular Hgb Conc. 31.8 g/dL (32.0-36.0); Mean Corpuscular Volume 80.6 fL (80.0-100.0); Monocytes # (auto) 0.8 10 ^3/uL (0-1.3); Monocytes % (auto) 6.4 % (0.0-12.0); Neutrophils # (auto) 10.2 10 ^3/uL (1.6-8.6); Neutrophils % (auto) 79.3 % (37.0-80.0); White Blood Cell 12.9 10^3/uL (4.4-10.8)
[2020-12-23 14:06] LABS: BUN/Creatinine Ratio 8.5; Calcium 8.7 mg/dL (8.5-10.1); Potassium 4.1 mmol/L (3.5-5.1)
[2020-12-23 17:00] VITALS: BP 130/79
[2020-12-23 22:00] VITALS: BP 138/90
[2020-12-24 04:01] LABS: Urine Bacteria NONE SEEN /hpf (None Seen); Urine Blood Negative /uL (Negative); Urine Specific Gravity 1.013 (1.001-1.035); Urine WBC 8 /hpf (0 - 3)
[2020-12-24 05:00] VITALS: BP 135/81
[2020-12-24] MEDS ORDERED: ceFAZolin 2 GM in D5W 5% 100 ML IV ONE (06:00)
[2020-12-24] MEDS: SODIUM CHLOR 0.9% PF (SALINE LOCK) 10ML VIAL/SYR IV SCH ×3 (06:01→21:26)
[2020-12-24 09:00] VITALS: BP 109/65
[2020-12-24] MEDS: CYANOCOBALAMIN 500 MCG TAB PO SCH (10:00)
[2020-12-24] MEDS: PANTOPRAZOLE 40 MG TAB PO SCH ×2 (10:00→21:25)
[2020-12-24] MEDS: CEFTRIAXONE SODIUM 2 GM in D5W 5% 50 ML IV SCH (10:45)
[2020-12-24] MEDS: FOLIC ACID 1 MG, MULTIPLE VITAMIN 10 ML, MAGNESIUM SULF SDV 50% 8 MEQ, THIAMINE INJ 100... INJ SCH ×5 (13:34)
[2020-12-24 13:57] VITALS: BP 138/81
[2020-12-24 17:19] VITALS: BP 115/75
[2020-12-24] MEDS: MORPHINE SULFATE 4 MG/ML SYR/VIAL IV PRN (21:26)
[2020-12-24 22:00] VITALS: BP 128/77
[2020-12-25 05:00] VITALS: BP 138/77
[2020-12-25] MEDS: SODIUM CHLOR 0.9% PF (SALINE LOCK) 10ML VIAL/SYR IV SCH ×3 (05:02→21:09)
[2020-12-25] MEDS: MORPHINE SULFATE 4 MG/ML SYR/VIAL IV PRN ×2 (05:24→19:48)
[2020-12-25 08:57] VITALS: BP 129/84
[2020-12-25] MEDS: CYANOCOBALAMIN 500 MCG TAB PO SCH (10:00)
[2020-12-25] MEDS: CEFTRIAXONE SODIUM 2 GM in D5W 5% 50 ML IV SCH (10:00)
[2020-12-25] MEDS: PANTOPRAZOLE 40 MG TAB PO SCH ×2 (10:00→21:09)
[2020-12-25] MEDS ORDERED: ceFAZolin 1GM/50ML 50 ML IV ONE (10:55)
[2020-12-25] MEDS: FOLIC ACID 1 MG, MULTIPLE VITAMIN 10 ML, MAGNESIUM SULF SDV 50% 8 MEQ, THIAMINE INJ 100... INJ SCH ×5 (12:00)
[2020-12-25] MEDS ORDERED: SUCCINYLCHOLINE CHLORIDE 20 MG/ML 10ML VIAL IV ONE (13:48)
[2020-12-25] MEDS ORDERED: fentaNYL CITRATE 100 MCG/2 ML VL ONE ×2 (13:50→16:17)
[2020-12-25] MEDS ORDERED: MIDAZOLAM HCL 2MG/2ML 2ml VIAL (1mg/ml) ONE (13:51)
[2020-12-25] MEDS ORDERED: HYDROmorphone HCL 2 MG/ML VL ONE (13:51)
[2020-12-25] MEDS ORDERED: ROCURONIUM 10MG/ML 10ML VIAL IV ONE (13:51)
[2020-12-25] MEDS ORDERED: ONDANSETRON HCL 4 MG/2 ML VIAL ONE (13:52)
[2020-12-25] MEDS ORDERED: PROPOFOL 10 MG/ML 20 ML IV ONE (13:52)
[2020-12-25] MEDS ORDERED: LIDOCAINE 2% (LOCAL ANESTH.) PF 5ml SDV ONE (13:52)
[2020-12-25] MEDS ORDERED: HYDROmorphone HCL 2 MG/ML VL IV PRN (16:30)
[2020-12-25] MEDS ORDERED: fentaNYL CITRATE 100 MCG/2 ML VL IV ONE (16:30)
[2020-12-25] MEDS ORDERED: ONDANSETRON HCL 4 MG/2 ML VIAL IV PRN (16:30)
[2020-12-25] MEDS ORDERED: LABETALOL HCL 5 MG/ML 4ML SYRINGE IV ONE ×2 (16:30→16:33)
[2020-12-25] MEDS: HYDROmorphone HCL 2 MG/ML VL IV PRN ×2 (16:50→17:00)
[2020-12-25 17:30] VITALS: BP 162/92
[2020-12-25] MEDS: D5W/SOD CHL 0.45%/KCL 20MEQ 1,000 ML IV SCH (18:00)
[2020-12-25 22:00] VITALS: BP 147/86
[2020-12-25] MEDS: ONDANSETRON HCL 4 MG/2 ML VIAL IV PRN (22:23)
[2020-12-26] MEDS: MORPHINE SULFATE 4 MG/ML SYR/VIAL IV PRN ×6 (00:18→21:19)
[2020-12-26] MEDS: D5W/SOD CHL 0.45%/KCL 20MEQ 1,000 ML IV SCH ×3 (00:18→17:14)
[2020-12-26 05:00] VITALS: BP 147/92
[2020-12-26] MEDS: SODIUM CHLOR 0.9% PF (SALINE LOCK) 10ML VIAL/SYR IV SCH ×3 (05:21→21:19)
[2020-12-26 09:00] VITALS: BP 146/95
[2020-12-26 09:12] LABS: Basophils # (auto) 0 10 ^3/uL (0-0.2); Basophils % (auto) 0.1 % (0.0-2.0); Eosinophils # (auto) 0 10 ^3/uL (0-0.8); Hemoglobin 10.1 g/dL (13.5-17.5); Lymphocytes # (auto) 1.1 10 ^3/uL (0.4-5.4); Monocytes # (auto) 1.5 10 ^3/uL (0-1.3)
[2020-12-26 09:13] LABS: Lymphocytes % (auto) 5.4 % (10.0-50.0); Mean Corpuscular Hemoglobin 25.6 pg (28.0-32.0); Mean Corpuscular Hgb Conc. 32.4 g/dL (32.0-36.0); Mean Corpuscular Volume 78.8 fL (80.0-100.0); Monocytes % (auto) 7.1 % (0.0-12.0); Neutrophils # (auto) 17.9 10 ^3/uL (1.6-8.6); Neutrophils % (auto) 87.4 % (37.0-80.0); Red Blood Cells 3.93 10^6/uL (4.5-5.90); Red Cell Distribution Width 19.8 % (11.8-14.3); White Blood Cell 20.6 10^3/uL (4.4-10.8)
[2020-12-26 09:30] LABS: Potassium 3.6 mmol/L (3.5-5.1)
[2020-12-26 09:37] LABS: BUN/Creatinine Ratio 7.8; Calcium 8.7 mg/dL (8.5-10.1)
[2020-12-26] MEDS: CYANOCOBALAMIN 500 MCG TAB PO SCH (10:00)
[2020-12-26] MEDS: PANTOPRAZOLE 40 MG TAB PO SCH ×2 (10:00→21:19)
[2020-12-26] MEDS: CEFTRIAXONE SODIUM 2 GM in D5W 5% 50 ML IV SCH (10:12)
[2020-12-26] MEDS: FOLIC ACID 1 MG, MULTIPLE VITAMIN 10 ML, MAGNESIUM SULF SDV 50% 8 MEQ, THIAMINE INJ 100... INJ SCH ×5 (12:37)
[2020-12-26] MEDS: ONDANSETRON HCL 4 MG/2 ML VIAL IV PRN (12:51)
[2020-12-26 13:00] VITALS: BP 147/93
[2020-12-26 17:00] VITALS: BP 151/91
[2020-12-26 23:18] VITALS: BP 144/86
[2020-12-27] MEDS: D5W/SOD CHL 0.45%/KCL 20MEQ 1,000 ML IV SCH ×3 (01:54→17:45)
[2020-12-27] MEDS: MORPHINE SULFATE 4 MG/ML SYR/VIAL IV PRN ×4 (03:34→20:18)
[2020-12-27 05:18] VITALS: BP 147/85
[2020-12-27] MEDS: SODIUM CHLOR 0.9% PF (SALINE LOCK) 10ML VIAL/SYR IV SCH ×3 (06:50→21:50)
[2020-12-27 09:00] VITALS: BP 147/77
[2020-12-27] MEDS: PANTOPRAZOLE 40 MG TAB PO SCH ×2 (09:44→21:50)
[2020-12-27] MEDS: HYDROcodone-ACET 5/325MG TAB PO PRN ×2 (09:48→15:46)
[2020-12-27] MEDS: CYANOCOBALAMIN 500 MCG TAB PO SCH (09:48)
[2020-12-27] MEDS: CEFTRIAXONE SODIUM 2 GM in D5W 5% 50 ML IV SCH (09:54)
[2020-12-27] MEDS: FOLIC ACID 1 MG, MULTIPLE VITAMIN 10 ML, MAGNESIUM SULF SDV 50% 8 MEQ, THIAMINE INJ 100... INJ SCH ×5 (12:00)
[2020-12-27 13:00] VITALS: BP 129/82
[2020-12-27 17:00] VITALS: BP 125/81
[2020-12-27 23:06] VITALS: BP 128/64
[2020-12-28] MEDS: MORPHINE SULFATE 4 MG/ML SYR/VIAL IV PRN ×6 (00:20→23:36)
[2020-12-28] MEDS: D5W/SOD CHL 0.45%/KCL 20MEQ 1,000 ML IV SCH ×4 (01:34→23:36)
[2020-12-28 05:00] VITALS: BP 143/81
[2020-12-28] MEDS: SODIUM CHLOR 0.9% PF (SALINE LOCK) 10ML VIAL/SYR IV SCH ×3 (05:25→22:01)
[2020-12-28 09:00] VITALS: BP 144/94
[2020-12-28] MEDS: CYANOCOBALAMIN 500 MCG TAB PO SCH (10:00)
[2020-12-28] MEDS: PANTOPRAZOLE 40 MG TAB PO SCH ×2 (10:00→22:00)
[2020-12-28] MEDS: CEFTRIAXONE SODIUM 2 GM in D5W 5% 50 ML IV SCH (10:00)
[2020-12-28 11:41] LABS: Basophils # (auto) 0.2 10 ^3/uL (0-0.2); Monocytes # (auto) 1.7 10 ^3/uL (0-1.3); Neutrophils # (auto) 16.3 10 ^3/uL (1.6-8.6)
[2020-12-28 11:43] LABS: Basophils % (auto) 0.8 % (0.0-2.0); Eosinophils # (auto) 0.1 10 ^3/uL (0-0.8); Eosinophils % (auto) 0.7 % (0.0-7.0); Hematocrit 29.9 % (41.0-53.0); Hemoglobin 9.8 g/dL (13.5-17.5); Lymphocytes # (auto) 1.9 10 ^3/uL (0.4-5.4); Lymphocytes % (auto) 9.4 % (10.0-50.0); Mean Corpuscular Hemoglobin 26.2 pg (28.0-32.0); Mean Corpuscular Hgb Conc. 32.7 g/dL (32.0-36.0); Mean Corpuscular Volume 80.1 fL (80.0-100.0); Monocytes % (auto) 8.4 % (0.0-12.0); Neutrophils % (auto) 80.7 % (37.0-80.0); Red Blood Cells 3.73 10^6/uL (4.5-5.90); Red Cell Distribution Width 19.5 % (11.8-14.3); White Blood Cell 20.2 10^3/uL (4.4-10.8)
[2020-12-28] MEDS: FOLIC ACID 1 MG, MULTIPLE VITAMIN 10 ML, MAGNESIUM SULF SDV 50% 8 MEQ, THIAMINE INJ 100... INJ SCH ×5 (12:00)
[2020-12-28 13:00] VITALS: BP 134/83
[2020-12-28 17:05] VITALS: BP 144/87
[2020-12-28 22:00] VITALS: BP 134/81
[2020-12-29] MEDS: MORPHINE SULFATE 4 MG/ML SYR/VIAL IV PRN ×4 (03:51→20:11)
[2020-12-29 05:00] VITALS: BP 114/66
[2020-12-29] MEDS: SODIUM CHLOR 0.9% PF (SALINE LOCK) 10ML VIAL/SYR IV SCH ×3 (05:24→22:00)
[2020-12-29 08:40] VITALS: BP 137/79
[2020-12-29] MEDS: PANTOPRAZOLE 40 MG TAB PO SCH ×2 (10:00→22:00)
[2020-12-29] MEDS: CYANOCOBALAMIN 500 MCG TAB PO SCH (10:00)
[2020-12-29 12:30] VITALS: BP 127/83
[2020-12-29] MEDS ORDERED: OMNIPAQUE ORAL SOLN 500ml 12mg/ml PO ONE (13:40)
[2020-12-29] MEDS ORDERED: IOHEXOL 300 MG/ML 100ML BOTTLE IJ ONE ×2 (16:01→17:16)
[2020-12-29] MEDS: CEFTRIAXONE SODIUM 2 GM in D5W 5% 50 ML IV SCH (16:19)
[2020-12-29 17:00] VITALS: BP 149/91
[2020-12-29] MEDS: D5W/SOD CHL 0.45%/KCL 20MEQ 1,000 ML IV SCH ×2 (17:59→19:45)
[2020-12-29] MEDS: ERGOCALCIFEROL 50,000 UNIT(1.25MG) CAP PO SCH (18:01)
[2020-12-29 22:18] VITALS: BP 135/81
[2020-12-29] MEDS ORDERED: PANTOPRAZOLE 40 MG/10 ML VIAL INJ IV ONE (23:00)
[2020-12-30] MEDS: MORPHINE SULFATE 4 MG/ML SYR/VIAL IV PRN ×5 (02:04→22:41)
[2020-12-30] MEDS: D5W/SOD CHL 0.45%/KCL 20MEQ 1,000 ML IV SCH ×3 (04:13→20:45)
[2020-12-30 05:27] VITALS: BP 130/67
[2020-12-30] MEDS: SODIUM CHLOR 0.9% PF (SALINE LOCK) 10ML VIAL/SYR IV SCH ×3 (05:53→21:45)
[2020-12-30 07:08] LABS: Basophils # (auto) 0.3 10 ^3/uL (0-0.2); Basophils % (auto) 2.2 % (0.0-2.0); Eosinophils # (auto) 0.3 10 ^3/uL (0-0.8); Eosinophils % (auto) 2.3 % (0.0-7.0); Hematocrit 28.7 % (41.0-53.0); Hemoglobin 9.2 g/dL (13.5-17.5); Lymphocytes # (auto) 1.6 10 ^3/uL (0.4-5.4); Lymphocytes % (auto) 11.4 % (10.0-50.0); Mean Corpuscular Hemoglobin 25.5 pg (28.0-32.0); Mean Corpuscular Hgb Conc. 32.1 g/dL (32.0-36.0); Mean Corpuscular Volume 79.4 fL (80.0-100.0); Monocytes # (auto) 1.4 10 ^3/uL (0-1.3); Monocytes % (auto) 9.9 % (0.0-12.0); Neutrophils # (auto) 10.6 10 ^3/uL (1.6-8.6); Neutrophils % (auto) 74.2 % (37.0-80.0); Nucleated Red Blood Cells % 0.1 %; Red Blood Cells 3.61 10^6/uL (4.5-5.90); Red Cell Distribution Width 19.8 % (11.8-14.3); White Blood Cell 14.2 10^3/uL (4.4-10.8)
[2020-12-30 07:38] LABS: Potassium 3.3 mmol/L (3.5-5.1)
[2020-12-30 07:47] LABS: BUN/Creatinine Ratio 2.7; Calcium 8.4 mg/dL (8.5-10.1)
[2020-12-30 09:21] VITALS: BP 124/83
[2020-12-30] MEDS: CEFTRIAXONE SODIUM 2 GM in D5W 5% 50 ML IV SCH (09:49)
[2020-12-30] MEDS: CYANOCOBALAMIN 500 MCG TAB PO SCH (10:00)
[2020-12-30] MEDS: PANTOPRAZOLE 40 MG TAB PO SCH ×2 (10:00→21:48)
[2020-12-30] MEDS ORDERED: POTASSIUM CHLORIDE 40 MEQ, LIDOCAINE 1% (LOCAL ANESTH.) 4 ML in SODIUM CHL 0.9% 250 ML IV ONE (12:15)
[2020-12-30] MEDS: FOLIC ACID 1 MG, MULTIPLE VITAMIN 10 ML, MAGNESIUM SULF SDV 50% 8 MEQ, THIAMINE INJ 100... INJ SCH ×10 (13:06→13:09)
[2020-12-30 14:29] VITALS: BP 128/72
[2020-12-30 16:58] VITALS: BP 132/83
[2020-12-30 22:00] VITALS: BP 141/79
[2020-12-31] MEDS: MORPHINE SULFATE 4 MG/ML SYR/VIAL IV PRN ×5 (02:53→21:29)
[2020-12-31 05:00] VITALS: BP 143/90
[2020-12-31] MEDS: SODIUM CHLOR 0.9% PF (SALINE LOCK) 10ML VIAL/SYR IV SCH ×3 (06:32→21:28)
[2020-12-31] MEDS: D5W/SOD CHL 0.45%/KCL 20MEQ 1,000 ML IV SCH ×3 (08:27→21:28)
[2020-12-31 08:54] VITALS: BP 139/84
[2020-12-31 09:07] LABS: Basophils # (auto) 0.1 10 ^3/uL (0-0.2); Eosinophils # (auto) 0.3 10 ^3/uL (0-0.8); Hemoglobin 9.2 g/dL (13.5-17.5); Mean Corpuscular Volume 78.8 fL (80.0-100.0); Monocytes # (auto) 1.1 10 ^3/uL (0-1.3); Red Cell Distribution Width 19.5 % (11.8-14.3); White Blood Cell 12.8 10^3/uL (4.4-10.8)
[2020-12-31 09:08] LABS: Basophils % (auto) 0.7 % (0.0-2.0); Eosinophils % (auto) 2.1 % (0.0-7.0); Hematocrit 28.3 % (41.0-53.0); Lymphocytes # (auto) 1.4 10 ^3/uL (0.4-5.4); Lymphocytes % (auto) 10.8 % (10.0-50.0); Mean Corpuscular Hemoglobin 25.7 pg (28.0-32.0); Mean Corpuscular Hgb Conc. 32.7 g/dL (32.0-36.0); Monocytes % (auto) 8.4 % (0.0-12.0); Red Blood Cells 3.59 10^6/uL (4.5-5.90)
[2020-12-31 09:25] LABS: Albumin 2.1 g/dL (3.4-5.0); Calcium 8.1 mg/dL (8.5-10.1); Potassium 3.6 mmol/L (3.5-5.1)
[2020-12-31 09:27] LABS: Bilirubin, Total 0.2 mg/dL (0.2-1.0); Total Protein 5.8 g/dL (6.4-8.2)
[2020-12-31] MEDS: CEFTRIAXONE SODIUM 2 GM in D5W 5% 50 ML IV SCH (09:57)
[2020-12-31] MEDS: PANTOPRAZOLE 40 MG TAB PO SCH ×2 (09:57→21:28)
[2020-12-31] MEDS: CYANOCOBALAMIN 500 MCG TAB PO SCH (09:58)
[2020-12-31] MEDS: FOLIC ACID 1 MG, MULTIPLE VITAMIN 10 ML, MAGNESIUM SULF SDV 50% 8 MEQ, THIAMINE INJ 100... INJ SCH ×5 (12:00)
[2020-12-31 12:55] VITALS: BP 134/83
[2020-12-31 17:01] VITALS: BP 118/74
[2020-12-31 22:00] VITALS: BP 129/78
[2021-01-01] MEDS: MORPHINE SULFATE 4 MG/ML SYR/VIAL IV PRN ×4 (01:32→13:40)
[2021-01-01 05:00] VITALS: BP 144/85
[2021-01-01] MEDS: SODIUM CHLOR 0.9% PF (SALINE LOCK) 10ML VIAL/SYR IV SCH ×2 (05:38→13:40)
[2021-01-01] MEDS: D5W/SOD CHL 0.45%/KCL 20MEQ 1,000 ML IV SCH ×2 (05:38→13:40)
[2021-01-01 09:00] VITALS: BP 126/77
[2021-01-01] MEDS: CEFTRIAXONE SODIUM 2 GM in D5W 5% 50 ML IV SCH (09:30)
[2021-01-01] MEDS: PANTOPRAZOLE 40 MG TAB PO SCH (09:30)
[2021-01-01] MEDS: CYANOCOBALAMIN 500 MCG TAB PO SCH (09:30)
[2021-01-01] MEDS: FOLIC ACID 1 MG, MULTIPLE VITAMIN 10 ML, MAGNESIUM SULF SDV 50% 8 MEQ, THIAMINE INJ 100... INJ SCH ×5 (12:30)
[2021-01-01 13:00] VITALS: BP 123/80
[2021-01-01 15:36] VITALS: BP 126/77
[2021-01-01 17:00] VITALS: BP 133/88
== END 2021-01-01 17:30 | disposition home health service (06) | DRG 329 ==
LOC: ER 18:17 → TELE 12-19 02:20 → TELE-WESTW 12-19 03:31
PROVIDERS: ADMIT Nurse Practitioner Family; ATTEND Internal Medicine
PROC: 30233N1 Transfusion of Nonautologous Red Blood Cells into Peripheral Vein, Percutaneous Approach (ICD-10-PCS; 2020-12-18)
PROC: 3E02340 Introduction of Influenza Vaccine into Muscle, Percutaneous Approach (ICD-10-PCS; 2020-12-19)
PROC: 0DB68ZX Excision of Stomach, Via Natural or Artificial Opening Endoscopic, Diagnostic (ICD-10-PCS; 2020-12-20)
PROC: 0DBF8ZX Excision of Right Large Intestine, Via Natural or Artificial Opening Endoscopic, Diagnostic (ICD-10-PCS; 2020-12-22)
PROC: 0DBL8ZX Excision of Transverse Colon, Via Natural or Artificial Opening Endoscopic, Diagnostic (ICD-10-PCS; 2020-12-22)
PROC: 0DTL0ZZ Resection of Transverse Colon, Open Approach (ICD-10-PCS; principal; 2020-12-25 14:02)
DX: C18.4 Malignant neoplasm of transverse colon (principal); K29.71 Gastritis, unspecified, with bleeding; E44.0 Moderate protein-calorie malnutrition; Z68.1 Body mass index [BMI] 19.9 or less, adult; B96.81 Helicobacter pylori [H. pylori] as the cause of diseases classified elsewhere; D50.0 Iron deficiency anemia secondary to blood loss (chronic); E53.8 Deficiency of other specified B group vitamins; I10 Essential (primary) hypertension; F10.10 Alcohol abuse, uncomplicated; Z20.822 Contact with and (suspected) exposure to COVID-19; I73.9 Peripheral vascular disease, unspecified; E16.2 Hypoglycemia, unspecified; F17.210 Nicotine dependence, cigarettes, uncomplicated; F15.90 Other stimulant use, unspecified, uncomplicated; F19.10 Other psychoactive substance abuse, uncomplicated; Z53.20 Procedure and treatment not carried out because of patient's decision for unspecified reasons; Z80.42 Family history of malignant neoplasm of prostate; Z71.41 Alcohol abuse counseling and surveillance of alcoholic; Z89.421 Acquired absence of other right toe(s); Z89.411 Acquired absence of right great toe; Z83.3 Family history of diabetes mellitus; Z85.038 Personal history of other malignant neoplasm of large intestine; Z87.19 Personal history of other diseases of the digestive system; Z71.6 Tobacco abuse counseling; Z23 Encounter for immunization
CPT/HCPCS: 36415; 36430; 43239; 45380; 71045; 74178; 80048; 80053; 80061; 81001; 82306; 82378; 82607; 82746; 82962; 83036; 83540; 83550; 83735; 84484; 85025; 85045; 85610; 85730; 86850; 86900; 86901; 86920; 87426; 93005; 93306; 97110; 97116; 97163; 97530; C9113; G0378; J0330; J0690; J0696; J2001; J2250; J2405; J2704; J3490; J7060

== ENCOUNTER → 2021-03-19 | Outpatient (CLI) | payer MEDICARE, OTHER ==
[~2021-03-19] VITALS: Ht 175.3 cm; Wt 52.2 kg
[~2021-03-19] MED LIST changes: +GABA300C10 PO; -HYOS0.1293; +IBUP600T27 PO; -LOPE2CAP PO; -LORA0.5T20 GT
[2021-03-19 08:24] VITALS: BP 109/75
[2021-03-19 08:38] VITALS: BP 110/74
[2021-03-19 11:32] LABS: Basophils # (auto) 0.1 10 ^3/uL (0-0.2); Basophils % (auto) 0.7 % (0.0-2.0); Eosinophils # (auto) 0.3 10 ^3/uL (0-0.8); Eosinophils % (auto) 2.6 % (0.0-7.0); Hematocrit 29.8 % (41.0-53.0); Hemoglobin 9.5 g/dL (13.5-17.5); Lymphocytes # (auto) 2.8 10 ^3/uL (0.4-5.4); Lymphocytes % (auto) 23.6 % (10.0-50.0); Mean Corpuscular Hemoglobin 27.9 pg (28.0-32.0); Mean Corpuscular Volume 87.4 fL (80.0-100.0); Monocytes # (auto) 1.7 10 ^3/uL (0-1.3); Monocytes % (auto) 13.8 % (0.0-12.0); Neutrophils # (auto) 7.1 10 ^3/uL (1.6-8.6); Neutrophils % (auto) 59.3 % (37.0-80.0); Nucleated Red Blood Cells % 0.1 %; Red Blood Cells 3.41 10^6/uL (4.5-5.90)
[2021-03-19 11:40] LABS: Red Cell Distribution Width 28.3 % (11.8-14.3)
[2021-03-19 11:49] LABS: INR 1.06 (0.9-1.15); Partial Thromboplastin Time 23.1 sec (23.0-31.2)
[2021-03-19 12:01] LABS: BUN/Creatinine Ratio 25.4; Calcium 9.5 mg/dL (8.5-10.1); Potassium 3.7 mmol/L (3.5-5.1)
== END | disposition home or self-care (01) ==
LOC: Rad HDHVI 08:01
PROVIDERS: ATTEND Internal Medicine
DX: Z01.812 Encounter for preprocedural laboratory examination (principal); I73.9 Peripheral vascular disease, unspecified; I70.0 Atherosclerosis of aorta; R06.02 Shortness of breath
CPT/HCPCS: 36415; 71046; 80048; 85025; 85610; 85730; 93005; G0463

== ENCOUNTER 2021-03-25 08:21 | Inpatient (IN) | payer MEDICARE, OTHER ==
[~2021-03-25] VITALS: Ht 175.3 cm; Wt 55.2 kg
[~2021-03-25 08:21] MED LIST changes: -GABA300C10 PO; -HYDR-4072 PO
[2021-03-25] MEDS ORDERED: ANGIOMAX 250 MG VIAL IV ONE (09:32)
[2021-03-25] MEDS ORDERED: SODIUM CHL 0.9% 50 ML ONE (09:33)
[2021-03-25] MEDS ORDERED: fentaNYL CITRATE 100 MCG/2 ML VL ONE ×2 (09:33→12:29)
[2021-03-25] MEDS ORDERED: MIDAZOLAM HCL 2MG/2ML 2ml VIAL (1mg/ml) ONE (09:33)
[2021-03-25] MEDS ORDERED: IODIXANOL 320MG/ML 100ML BTL IV ONE (09:35)
[2021-03-25] MEDS ORDERED: LIDOCAINE 2%HCL (LOCAL ANESTH.) INJ 20ML MDV ONE ×2 (09:35→10:42)
[2021-03-25] MEDS ORDERED: diphenhdrAMINE HCL 50 MG/1 ML VL ONE (11:17)
[2021-03-25] MEDS ORDERED: ATROPINE SULF 1 MG/10ml SYR ONE ×2 (12:06→14:29)
[2021-03-25] MEDS ORDERED: HEPARIN SODIUM (PORCINE) 5000 UNITS/ML 1ML VIAL ONE (12:52)
[2021-03-25] MEDS ORDERED: CLOPIDOGREL BISULFATE 75 MG TAB ONE (13:10)
[2021-03-25] MEDS ORDERED: ASPirin 81 mg TAB ONE (13:10)
[2021-03-25] MEDS ORDERED: ONDANSETRON HCL 4 MG/2 ML VIAL ONE (13:59)
[2021-03-25] MEDS ORDERED: PHENYLEPHRINE IV 250 ML IV SCH (14:15)
[2021-03-25] MEDS ORDERED: PHENYLEPHRINE HCL 10 MG/ML VL ONE (14:25)
[2021-03-25] MEDS ORDERED: EPINEPHrine HCL 1 MG/10 ML SYRG ONE (14:29)
[2021-03-25] MEDS ORDERED: DOPamine 1600MCG/ML D5W 0 ML IV ONE (14:33)
[2021-03-25] MEDS ORDERED: MORPHINE SULFATE INJECTION 2 MG/ML SYRG IV PRN (14:45)
[2021-03-25] MEDS ORDERED: NITROGLYCERIN 0.4 MG SL TAB SL PRN (14:45)
[2021-03-25] MEDS: SODIUM CHLORIDE 0.9% 1,000 ML IV SCH ×2 (14:45→20:00)
[2021-03-25 15:21] LABS: Eosinophils # (auto) 0.1 10 ^3/uL (0-0.8); Lymphocytes # (auto) 2.3 10 ^3/uL (0.4-5.4); Mean Corpuscular Hgb Conc. 32.6 g/dL (32.0-36.0); Mean Corpuscular Volume 88.9 fL (80.0-100.0)
[2021-03-25 15:22] LABS: Basophils # (auto) 0.1 10 ^3/uL (0-0.2); Basophils % (auto) 0.5 % (0.0-2.0); Hematocrit 25.5 % (41.0-53.0); Hemoglobin 8.3 g/dL (13.5-17.5); Lymphocytes % (auto) 18.8 % (10.0-50.0); Monocytes # (auto) 1.4 10 ^3/uL (0-1.3); Monocytes % (auto) 11.5 % (0.0-12.0); Neutrophils # (auto) 8.5 10 ^3/uL (1.6-8.6); Neutrophils % (auto) 68.2 % (37.0-80.0); Red Blood Cells 2.87 10^6/uL (4.5-5.90); White Blood Cell 12.4 10^3/uL (4.4-10.8)
[2021-03-25] MEDS ORDERED: ONDANSETRON HCL 4 MG/2 ML VIAL IV PRN (16:45)
[2021-03-25] MEDS ORDERED: cefTRIAXone 1GM/50ML D5W 50 ML IV ONE (16:45)
[2021-03-25 17:15] VITALS: BP 140/80
[2021-03-25 19:02] LABS: Basophils # (auto) 0 10 ^3/uL (0-0.2); Basophils % (auto) 0.4 % (0.0-2.0); Eosinophils # (auto) 0 10 ^3/uL (0-0.8); Eosinophils % (auto) 0.2 % (0.0-7.0); Hematocrit 27.6 % (41.0-53.0); Hemoglobin 8.9 g/dL (13.5-17.5); Lymphocytes # (auto) 1.5 10 ^3/uL (0.4-5.4); Lymphocytes % (auto) 12.1 % (10.0-50.0); Mean Corpuscular Hemoglobin 28.8 pg (28.0-32.0); Mean Corpuscular Hgb Conc. 32.4 g/dL (32.0-36.0); Mean Corpuscular Volume 88.9 fL (80.0-100.0); Monocytes # (auto) 1.1 10 ^3/uL (0-1.3); Neutrophils # (auto) 9.9 10 ^3/uL (1.6-8.6); Neutrophils % (auto) 78.3 % (37.0-80.0); Red Blood Cells 3.11 10^6/uL (4.5-5.90); White Blood Cell 12.6 10^3/uL (4.4-10.8)
[2021-03-25 22:00] VITALS: BP 118/71
[2021-03-25] MEDS: MORPHINE SULFATE INJECTION 2 MG/ML SYRG IV PRN (23:10)
[2021-03-26] VITALS (12 sets, daily range): BP systolic 107–125; BP diastolic 63–80
[2021-03-26] MEDS: SODIUM CHLORIDE 0.9% 1,000 ML IV SCH ×2 (01:00→06:00)
[2021-03-26] MEDS: MORPHINE SULFATE INJECTION 2 MG/ML SYRG IV PRN (03:24)
[2021-03-26 05:33] LABS: Basophils # (auto) 0 10 ^3/uL (0-0.2); Basophils % (auto) 0.3 % (0.0-2.0); Eosinophils # (auto) 0.1 10 ^3/uL (0-0.8); Hemoglobin 7.3 g/dL (13.5-17.5); Lymphocytes # (auto) 1.4 10 ^3/uL (0.4-5.4); Mean Corpuscular Volume 88.6 fL (80.0-100.0)
[2021-03-26 05:38] LABS: Eosinophils % (auto) 0.6 % (0.0-7.0); Hematocrit 21.2 % (41.0-53.0); Lymphocytes % (auto) 13.9 % (10.0-50.0); Mean Corpuscular Hemoglobin 30.5 pg (28.0-32.0); Mean Corpuscular Hgb Conc. 34.4 g/dL (32.0-36.0); Monocytes # (auto) 1.4 10 ^3/uL (0-1.3); Monocytes % (auto) 13.9 % (0.0-12.0); Neutrophils # (auto) 6.9 10 ^3/uL (1.6-8.6); Neutrophils % (auto) 71.3 % (37.0-80.0); Red Blood Cells 2.39 10^6/uL (4.5-5.90); White Blood Cell 9.7 10^3/uL (4.4-10.8)
[2021-03-26 05:50] LABS: Red Cell Distribution Width 27.1 % (11.8-14.3)
[2021-03-26 05:55] LABS: Potassium 3.7 mmol/L (3.5-5.1)
[2021-03-26 06:00] LABS: BUN/Creatinine Ratio 21.2; Calcium 8.2 mg/dL (8.5-10.1)
[2021-03-26] MEDS: PANTOPRAZOLE 40 MG TAB PO SCH (10:00)
[2021-03-26] MEDS: cefTRIAXone 1GM/50ML D5W 50 ML IV SCH (10:00)
[2021-03-26] MEDS ORDERED: ASPirin 81 mg TAB PO ONE (11:45)
[2021-03-26] MEDS: RIVAROXABAN 10 MG TAB PO SCH (21:23)
[2021-03-26] MEDS ORDERED: ATORVASTATIN 20 MG TAB PO SCH (22:00)
[2021-03-27 05:00] VITALS: BP 114/83
[2021-03-27 06:45] LABS: Basophils # (auto) 0 10 ^3/uL (0-0.2); Basophils % (auto) 0.4 % (0.0-2.0); Eosinophils # (auto) 0.1 10 ^3/uL (0-0.8); Eosinophils % (auto) 1.2 % (0.0-7.0); Hematocrit 26.4 % (41.0-53.0); Hemoglobin 9.1 g/dL (13.5-17.5); Lymphocytes # (auto) 1.4 10 ^3/uL (0.4-5.4); Mean Corpuscular Hemoglobin 30.4 pg (28.0-32.0); Mean Corpuscular Hgb Conc. 34.6 g/dL (32.0-36.0); Mean Corpuscular Volume 87.8 fL (80.0-100.0); Monocytes # (auto) 1.5 10 ^3/uL (0-1.3); Monocytes % (auto) 15.6 % (0.0-12.0); Neutrophils # (auto) 6.7 10 ^3/uL (1.6-8.6); Neutrophils % (auto) 68.8 % (37.0-80.0); White Blood Cell 9.8 10^3/uL (4.4-10.8)
[2021-03-27 06:59] LABS: Potassium 3.6 mmol/L (3.5-5.1)
[2021-03-27 07:09] LABS: BUN/Creatinine Ratio 14.5; Calcium 9.2 mg/dL (8.5-10.1)
[2021-03-27 09:00] VITALS: BP 97/62
[2021-03-27] MEDS: PANTOPRAZOLE 40 MG TAB PO SCH (09:02)
[2021-03-27] MEDS: RIVAROXABAN 10 MG TAB PO SCH (09:02)
[2021-03-27] MEDS: cefTRIAXone 1GM/50ML D5W 50 ML IV SCH (09:04)
[2021-03-27] MEDS ORDERED: ASPirin 81 mg TAB PO SCH (10:00)
[2021-03-27 13:00] VITALS: BP 103/67
[2021-03-27 14:43] VITALS: BP 103/67
== END 2021-03-27 18:19 | disposition home or self-care (01) | DRG 253 ==
LOC: CATH 08:21 → TELE 14:39 → TELE-WESTW 15:30
PROVIDERS: ADMIT Internal Medicine; ATTEND Internal Medicine
PROC: B41G1ZZ Fluoroscopy of Left Lower Extremity Arteries using Low Osmolar Contrast (ICD-10-PCS; principal; 2021-03-25)
PROC: 047L34Z Dilation of Left Femoral Artery with Drug-eluting Intraluminal Device, Percutaneous Approach (ICD-10-PCS; 2021-03-25)
PROC: 047N3Z1 Dilation of Left Popliteal Artery using Drug-Coated Balloon, Percutaneous Approach (ICD-10-PCS; 2021-03-25)
PROC: B41F1ZZ Fluoroscopy of Right Lower Extremity Arteries using Low Osmolar Contrast (ICD-10-PCS; 2021-03-25)
PROC: B44GZZ3 Ultrasonography of Left Lower Extremity Arteries, Intravascular (ICD-10-PCS; 2021-03-25)
PROC: 30230N1 Transfusion of Nonautologous Red Blood Cells into Peripheral Vein, Open Approach (ICD-10-PCS; 2021-03-26)
DX: E11.51 Type 2 diabetes mellitus with diabetic peripheral angiopathy without gangrene (principal); R64 Cachexia; C18.9 Malignant neoplasm of colon, unspecified; I70.92 Chronic total occlusion of artery of the extremities; Z68.1 Body mass index [BMI] 19.9 or less, adult; D64.9 Anemia, unspecified; I10 Essential (primary) hypertension; Z20.822 Contact with and (suspected) exposure to COVID-19; E78.5 Hyperlipidemia, unspecified; I70.203 Unspecified atherosclerosis of native arteries of extremities, bilateral legs; X58.XXXA Exposure to other specified factors, initial encounter; S70.12XA Contusion of left thigh, initial encounter; Z79.01 Long term (current) use of anticoagulants; Z79.02 Long term (current) use of antithrombotics/antiplatelets; Z83.3 Family history of diabetes mellitus; Z85.038 Personal history of other malignant neoplasm of large intestine; Y93.89 Activity, other specified; Y92.89 Other specified places as the place of occurrence of the external cause; Y99.8 Other external cause status; Z79.899 Other long term (current) drug therapy
CPT/HCPCS: 36415; 37224; 37226; 75710; 76937; 80048; 85025; 86850; 86900; 86901; 86920; 99152; 99153; G0378; J0696; J2250; J2405; Q9967

== ENCOUNTER 2021-06-17 09:09 | Inpatient (IN) | payer MEDICARE, OTHER ==
[~2021-06-17] VITALS: Ht 182.9 cm; Wt 64.3 kg
[2021-06-17 13:30] LABS: Basophils # (auto) 0 10 ^3/uL (0-0.2); Neutrophils # (auto) 8.8 10 ^3/uL (1.6-8.6); Neutrophils % (auto) 79.7 % (37.0-80.0); Nucleated Red Blood Cells % 0.1 %; Red Blood Cells 2.32 10^6/uL (4.5-5.90)
[2021-06-17 13:32] LABS: Basophils % (auto) 0.4 % (0.0-2.0); Eosinophils # (auto) 0.1 10 ^3/uL (0-0.8); Eosinophils % (auto) 0.5 % (0.0-7.0); Hematocrit 20.9 % (41.0-53.0); Lymphocytes # (auto) 1.3 10 ^3/uL (0.4-5.4); Lymphocytes % (auto) 11.4 % (10.0-50.0); Mean Corpuscular Hemoglobin 29.2 pg (28.0-32.0); Mean Corpuscular Hgb Conc. 32.3 g/dL (32.0-36.0); Mean Corpuscular Volume 90.3 fL (80.0-100.0); Monocytes # (auto) 0.9 10 ^3/uL (0-1.3)
[2021-06-17 13:44] LABS: INR 1.05 (0.9-1.15)
[2021-06-17 13:53] LABS: Albumin 2.2 g/dL (3.4-5.0); Calcium 8.3 mg/dL (8.5-10.1)
[2021-06-17 13:55] LABS: BUN/Creatinine Ratio 17.2
[2021-06-17 14:00] LABS: Bilirubin, Total 0.2 mg/dL (0.2-1.0); Total Protein 7.1 g/dL (6.4-8.2)
[2021-06-17 14:10] LABS: Red Cell Distribution Width 20.7 % (11.8-14.3)
[2021-06-17 14:15] LABS: Hemoglobin 6.8 g/dL (13.5-17.5)
[2021-06-17] MEDS ORDERED: IOHEXOL 350 MG/ML 100ML IJ ONE (15:03)
[2021-06-17] MEDS ORDERED: ONDANSETRON HCL 4 MG/2 ML VIAL IV PRN ×2 (15:45)
[2021-06-17] MEDS: SODIUM CHLORIDE 0.9% 1,000 ML IV SCH (15:45)
[2021-06-17] MEDS ORDERED: ACETAMINOPHEN 500 MG TAB PO PRN ×2 (15:45)
[2021-06-17] MEDS ORDERED: NITROGLYCERIN 0.4 MG SL TAB SL PRN (15:45)
[2021-06-17] MEDS ORDERED: MORPHINE SULFATE INJECTION 2 MG/ML SYRG IV PRN ×2 (15:45)
[2021-06-17] MEDS ORDERED: HYDROcodone-ACET 5/325MG TAB PO PRN ×2 (15:45)
[2021-06-17] MEDS ORDERED: hydrALAZINE HCL 20 MG/ML VL IV PRN (15:45)
[2021-06-17 20:00] VITALS: BP 134/84
[2021-06-17 22:00] VITALS: BP 134/84
[2021-06-17] MEDS: METOPROLOL TARTRATE 25 MG TAB PO SCH (22:41)
[2021-06-17] MEDS: ENOXAPARIN SOD 60 MG/0.6 ML SYRINGE SC SCH (22:45)
[2021-06-17 22:47] VITALS: BP 137/89
[2021-06-17 23:16] VITALS: BP 137/83
[2021-06-18] MEDS: SODIUM CHLORIDE 0.9% 1,000 ML IV SCH ×2 (01:45→11:45)
[2021-06-18 02:56] VITALS: BP 108/72
[2021-06-18] MEDS: MORPHINE SULFATE INJECTION 2 MG/ML SYRG IV PRN (03:00)
[2021-06-18 05:00] VITALS: BP 110/69
[2021-06-18 06:35] LABS: Basophils # (auto) 0.1 10 ^3/uL (0-0.2); Basophils % (auto) 0.4 % (0.0-2.0); Eosinophils # (auto) 0 10 ^3/uL (0-0.8); Eosinophils % (auto) 0.3 % (0.0-7.0); Hematocrit 28.6 % (41.0-53.0); Hemoglobin 9.4 g/dL (13.5-17.5); Lymphocytes # (auto) 1.2 10 ^3/uL (0.4-5.4); Lymphocytes % (auto) 10.6 % (10.0-50.0); Mean Corpuscular Hemoglobin 29.3 pg (28.0-32.0); Mean Corpuscular Volume 88.9 fL (80.0-100.0); Monocytes # (auto) 1.3 10 ^3/uL (0-1.3); Monocytes % (auto) 10.7 % (0.0-12.0); Neutrophils # (auto) 9.1 10 ^3/uL (1.6-8.6); Red Blood Cells 3.22 10^6/uL (4.5-5.90); Red Cell Distribution Width 18.8 % (11.8-14.3); White Blood Cell 11.7 10^3/uL (4.4-10.8)
[2021-06-18 06:46] LABS: INR 1.06 (0.9-1.15); Partial Thromboplastin Time 31.5 sec (23.6-33.0)
[2021-06-18 06:54] LABS: Albumin 2.2 g/dL (3.4-5.0); Calcium 8.7 mg/dL (8.5-10.1); Potassium 3.7 mmol/L (3.5-5.1)
[2021-06-18 06:58] LABS: BUN/Creatinine Ratio 13.3; Bilirubin, Total 0.4 mg/dL (0.2-1.0); Total Protein 7.2 g/dL (6.4-8.2)
[2021-06-18] MEDS: ENOXAPARIN SOD 60 MG/0.6 ML SYRINGE SC SCH (08:43)
[2021-06-18] MEDS: ASPirin-EC 81 mg tab PO SCH (08:44)
[2021-06-18] MEDS: METOPROLOL TARTRATE 25 MG TAB PO SCH ×2 (08:44→22:52)
[2021-06-18] MEDS: PANTOPRAZOLE 40 MG TAB PO SCH (09:28)
[2021-06-18 09:32] VITALS: BP 111/75
[2021-06-18] MEDS ORDERED: fentaNYL CITRATE 100 MCG/2 ML VL ONE (10:16)
[2021-06-18] MEDS ORDERED: MIDAZOLAM HCL 2MG/2ML 2ml VIAL (1mg/ml) ONE ×3 (10:16→11:22)
[2021-06-18] MEDS ORDERED: LIDOCAINE 2%HCL (LOCAL ANESTH.) INJ 20ML MDV ONE (10:31)
[2021-06-18] MEDS ORDERED: IODIXANOL 320MG/ML 100ML BTL IV ONE (10:31)
[2021-06-18] MEDS ORDERED: diphenhdrAMINE HCL 50 MG/1 ML VL ONE (10:35)
[2021-06-18] MEDS ORDERED: SODIUM CHL 0.9% 50 ML ONE (10:56)
[2021-06-18] MEDS ORDERED: ANGIOMAX 250 MG VIAL IV ONE (10:56)
[2021-06-18] MEDS ORDERED: HYDROmorphone HCL 2 MG/ML VL ONE (11:09)
[2021-06-18] MEDS ORDERED: ONDANSETRON HCL 4 MG/2 ML VIAL ONE (11:09)
[2021-06-18 13:26] LABS: Basophils # (auto) 0.1 10 ^3/uL (0-0.2); Basophils % (auto) 0.4 % (0.0-2.0); Eosinophils # (auto) 0 10 ^3/uL (0-0.8); Eosinophils % (auto) 0.3 % (0.0-7.0); Hematocrit 28.5 % (41.0-53.0); Hemoglobin 9.3 g/dL (13.5-17.5); Lymphocytes # (auto) 1.3 10 ^3/uL (0.4-5.4); Lymphocytes % (auto) 8.9 % (10.0-50.0); Mean Corpuscular Hemoglobin 29.2 pg (28.0-32.0); Mean Corpuscular Hgb Conc. 32.7 g/dL (32.0-36.0); Mean Corpuscular Volume 89.5 fL (80.0-100.0); Monocytes # (auto) 1.3 10 ^3/uL (0-1.3); Monocytes % (auto) 8.9 % (0.0-12.0); Neutrophils # (auto) 11.9 10 ^3/uL (1.6-8.6); Neutrophils % (auto) 81.5 % (37.0-80.0); Nucleated Red Blood Cells % 0.1 %; Red Blood Cells 3.19 10^6/uL (4.5-5.90); Red Cell Distribution Width 19.1 % (11.8-14.3); White Blood Cell 14.6 10^3/uL (4.4-10.8)
[2021-06-18 14:29] VITALS: BP 125/89
[2021-06-18] MEDS: RIVAROXABAN 15 MG TAB PO SCH ×2 (15:01→22:52)
[2021-06-18 16:37] LABS: Basophils # (auto) 0.1 10 ^3/uL (0-0.2); Basophils % (auto) 0.6 % (0.0-2.0); Eosinophils # (auto) 0 10 ^3/uL (0-0.8); Eosinophils % (auto) 0.3 % (0.0-7.0); Hemoglobin 9.7 g/dL (13.5-17.5); Lymphocytes # (auto) 1.5 10 ^3/uL (0.4-5.4); Lymphocytes % (auto) 13.1 % (10.0-50.0); Mean Corpuscular Hemoglobin 28.9 pg (28.0-32.0); Mean Corpuscular Hgb Conc. 31.4 g/dL (32.0-36.0); Monocytes # (auto) 1.1 10 ^3/uL (0-1.3); Neutrophils # (auto) 8.5 10 ^3/uL (1.6-8.6); Nucleated Red Blood Cells % 0.1 %; Red Blood Cells 3.37 10^6/uL (4.5-5.90); Red Cell Distribution Width 19.1 % (11.8-14.3); White Blood Cell 11.2 10^3/uL (4.4-10.8)
[2021-06-18 16:44] VITALS: BP 120/81
[2021-06-18] MEDS ORDERED: RIVAROXABAN 20 MG TAB PO SCH (18:00)
[2021-06-18 22:00] VITALS: BP 120/81
[2021-06-19] MEDS: SODIUM CHLORIDE 0.9% 1,000 ML IV SCH ×2 (02:41→07:45)
[2021-06-19 05:00] VITALS: BP 128/89
[2021-06-19 09:00] VITALS: BP 124/81
[2021-06-19] MEDS: RIVAROXABAN 15 MG TAB PO SCH ×2 (09:34→22:00)
[2021-06-19] MEDS: PANTOPRAZOLE 40 MG TAB PO SCH (09:34)
[2021-06-19] MEDS: METOPROLOL TARTRATE 25 MG TAB PO SCH ×2 (09:34→22:42)
[2021-06-19] MEDS: MORPHINE SULFATE INJECTION 2 MG/ML SYRG IV PRN ×3 (09:35→22:41)
[2021-06-19] MEDS: ASPirin-EC 81 mg tab PO SCH (09:36)
[2021-06-19 13:00] VITALS: BP 132/90
[2021-06-19 16:58] VITALS: BP 119/89
[2021-06-19 20:00] VITALS: BP 121/74
[2021-06-19 22:00] VITALS: BP 121/74
[2021-06-20 05:00] VITALS: BP 125/78
[2021-06-20 08:00] VITALS: BP 101/68
[2021-06-20 09:00] VITALS: BP 97/69
[2021-06-20] MEDS: ASPirin-EC 81 mg tab PO SCH (09:52)
[2021-06-20] MEDS: PANTOPRAZOLE 40 MG TAB PO SCH (09:54)
[2021-06-20] MEDS: RIVAROXABAN 15 MG TAB PO SCH (09:54)
[2021-06-20] MEDS: METOPROLOL TARTRATE 25 MG TAB PO SCH (09:54)
[2021-06-20] MEDS: MORPHINE SULFATE INJECTION 2 MG/ML SYRG IV PRN (09:56)
[2021-06-20] MEDS ORDERED: RIVA20TA PO (10:10)
[2021-06-20] MEDS ORDERED: RIV15T PO (10:10)
[2021-06-20 12:24] VITALS: BP 101/68
== END 2021-06-20 15:51 | disposition home health service (06) | DRG 252 ==
LOC: ER 09:09 → TELE 15:40 → TELE-WESTW 18:54
PROVIDERS: ADMIT Nurse Practitioner Acute Care; ATTEND Internal Medicine
PROC: 30233N1 Transfusion of Nonautologous Red Blood Cells into Peripheral Vein, Percutaneous Approach (ICD-10-PCS; principal; 2021-06-17)
PROC: 05CY3ZZ Extirpation of Matter from Upper Vein, Percutaneous Approach (ICD-10-PCS; 2021-06-18)
DX: I82.622 Acute embolism and thrombosis of deep veins of left upper extremity (principal); I26.99 Other pulmonary embolism without acute cor pulmonale; E43 Unspecified severe protein-calorie malnutrition; R64 Cachexia; Z68.1 Body mass index [BMI] 19.9 or less, adult; D64.9 Anemia, unspecified; Z20.822 Contact with and (suspected) exposure to COVID-19; I73.9 Peripheral vascular disease, unspecified; E78.5 Hyperlipidemia, unspecified; I10 Essential (primary) hypertension; Z79.01 Long term (current) use of anticoagulants; Z79.02 Long term (current) use of antithrombotics/antiplatelets; Z80.42 Family history of malignant neoplasm of prostate; Z83.3 Family history of diabetes mellitus; Z86.718 Personal history of other venous thrombosis and embolism; Z90.49 Acquired absence of other specified parts of digestive tract; Z85.038 Personal history of other malignant neoplasm of large intestine; Z72.0 Tobacco use
CPT/HCPCS: 36415; 37187; 71275; 80053; 83735; 84484; 85025; 85610; 85730; 86850; 86900; 86901; 86920; 87426; 93306; 93971; 97110; 97116; 97530; 99152; 99153; G0378; J2250; J2405; Q9967

== ENCOUNTER 2021-06-26 10:15 | Inpatient (IN) | payer MEDICARE, OTHER ==
[~2021-06-26] VITALS: Ht 177.8 cm; Wt 50.7 kg
[~2021-06-26 10:15] MED LIST changes: -AMOX500T86 PO; -CLOP75TA28 PO; -IBUP600T27 PO; +RIV15T PO; +RIVA20TA PO
[2021-06-26 11:14] LABS: Basophils # (auto) 0.1 10 ^3/uL (0-0.2); Basophils % (auto) 0.5 % (0.0-2.0); Eosinophils # (auto) 0 10 ^3/uL (0-0.8); Hematocrit 24.1 % (41.0-53.0); Hemoglobin 7.7 g/dL (13.5-17.5); Lymphocytes # (auto) 1.2 10 ^3/uL (0.4-5.4); Lymphocytes % (auto) 5.1 % (10.0-50.0); Mean Corpuscular Hemoglobin 28.6 pg (28.0-32.0); Mean Corpuscular Hgb Conc. 31.9 g/dL (32.0-36.0); Mean Corpuscular Volume 89.9 fL (80.0-100.0); Monocytes # (auto) 1.8 10 ^3/uL (0-1.3); Monocytes % (auto) 7.4 % (0.0-12.0); Neutrophils # (auto) 21.2 10 ^3/uL (1.6-8.6); Nucleated Red Blood Cells % 0.1 %; Red Blood Cells 2.68 10^6/uL (4.5-5.90); Red Cell Distribution Width 19.3 % (11.8-14.3); White Blood Cell 24.3 10^3/uL (4.4-10.8)
[2021-06-26 11:30] LABS: Albumin 2.4 g/dL (3.4-5.0); Calcium 8.9 mg/dL (8.5-10.1); Potassium 3.5 mmol/L (3.5-5.1)
[2021-06-26 11:34] LABS: BUN/Creatinine Ratio 13.3; Bilirubin, Total 0.5 mg/dL (0.2-1.0); Total Protein 7.8 g/dL (6.4-8.2)
[2021-06-26] MEDS ORDERED: cefTRIAXone 1GM/50ML D5W 50 ML IV ONE (12:00)
[2021-06-26] MEDS ORDERED: metroNIDAZOLE 500MG/100ML 100 ML IV ONE (12:00)
[2021-06-26] MEDS ORDERED: ENOXAPARIN SOD 60 MG/0.6 ML SYRINGE SC ONE (12:00)
[2021-06-26] MEDS ORDERED: NITROGLYCERIN 0.4 MG SL TAB SL PRN ×2 (12:15→17:00)
[2021-06-26] MEDS ORDERED: MORPHINE SULFATE INJECTION 2 MG/ML SYRG IV PRN ×2 (12:15→17:00)
[2021-06-26] MEDS ORDERED: GASTROGRAFIN 120 ML SOL ONE (16:43)
[2021-06-26] MEDS ORDERED: ACETAMINOPHEN 325 MG TAB PO PRN (17:00)
[2021-06-26] MEDS ORDERED: ALUM & MAG HYDROX-SIMETH LIQ(MAALOX) 30 ML PO PRN (17:00)
[2021-06-26] MEDS ORDERED: LORazepam 0.5 MG TAB PO PRN (17:00)
[2021-06-26] MEDS ORDERED: PENTOXIFYLLINE 400 MG ER TAB PO ONE (17:00)
[2021-06-26] MEDS ORDERED: PANTOPRAZOLE 40 MG/10 ML VIAL INJ IV ONE (17:00)
[2021-06-26] MEDS ORDERED: DOCUSATE SOD 100 MG CAP PO PRN (17:00)
[2021-06-26] MEDS ORDERED: ONDANSETRON HCL 4 MG/2 ML VIAL IV PRN (17:00)
[2021-06-26] MEDS ORDERED: SODIUM CHLORIDE 0.9% 1,000 ML IV ONE (17:00)
[2021-06-26] MEDS ORDERED: HYDROcodone-ACET 5/325MG TAB PO PRN (17:00)
[2021-06-26] MEDS ORDERED: IPRATROPIUM BROM 0.5 MG/2.5ML INH SOL NEB PRN (17:15)
[2021-06-26 17:26] LABS: Magnesium 1.9 mg/dL (1.6-2.6); Phosphorus 3.3 mg/dL (2.5-4.90)
[2021-06-26] MEDS ORDERED: IPRATROPIUM BROM 0.5 MG/2.5ML INH SOL NEB SCH (18:00)
[2021-06-26] MEDS: POTASSIUM CHLORIDE 20 MEQ in D5W/LACTATED RINGERS 1,000 ML IV SCH (18:15)
[2021-06-26 19:12] LABS: Urine Bacteria FEW /hpf (None Seen); Urine Blood 2+ /uL (Negative); Urine Mucus FEW (None Seen); Urine Specific Gravity 1.027 (1.001-1.035); Urine WBC 7 /hpf (0 - 3)
[2021-06-26 19:37] LABS: Amphetamine Screen, Urine NEGATIVE (NEGATIVE); Barbiturate Scree,Urine NEGATIVE (NEGATIVE); Benzodiazephine Screen, Urine NEGATIVE (NEGATIVE); Cannabinoid Screen, Urine POSITIVE (NEGATIVE); Opiate Scree,Urine POSITIVE (NEGATIVE); Phencyclidine Screen, Urine NEGATIVE (NEGATIVE)
[2021-06-26 19:44] LABS: Cocaine Screen, Urine NEGATIVE (NEGATIVE)
[2021-06-26 21:03] VITALS: BP 118/79
[2021-06-26 21:06] LABS: Cholesterol 172 mg/dL (< 200); HDL Cholesterol 30 mg/dL (40-59); LDL Cholesterol 107 mg/dL (< 100); Triglycerides 229 mg/dL (< 150)
[2021-06-26] MEDS: metroNIDAZOLE 500MG/100ML 100 ML IV SCH (21:38)
[2021-06-26] MEDS: ATORVASTATIN 20 MG TAB PO SCH (21:38)
[2021-06-26] MEDS: PENTOXIFYLLINE 400 MG ER TAB PO SCH (21:38)
[2021-06-26] MEDS: ENOXAPARIN SOD 100 MG/1 ML SYRINGE SC SCH (21:39)
[2021-06-26] MEDS: MORPHINE SULFATE INJECTION 2 MG/ML SYRG IV PRN (21:48)
[2021-06-26 23:22] VITALS: BP 109/78
[2021-06-27] MEDS: MORPHINE SULFATE INJECTION 2 MG/ML SYRG IV PRN (02:28)
[2021-06-27] MEDS: POTASSIUM CHLORIDE 20 MEQ in D5W/LACTATED RINGERS 1,000 ML IV SCH ×2 (04:21→13:19)
[2021-06-27 05:28] VITALS: BP 138/70
[2021-06-27] MEDS: PENTOXIFYLLINE 400 MG ER TAB PO SCH ×3 (06:00→22:00)
[2021-06-27] MEDS: metroNIDAZOLE 500MG/100ML 100 ML IV SCH ×3 (06:38→22:00)
[2021-06-27] MEDS: cefTRIAXone 1GM/50ML D5W 50 ML IV SCH (08:28)
[2021-06-27] MEDS: ASPirin 81 mg TAB PO SCH (08:28)
[2021-06-27] MEDS: ENOXAPARIN SOD 100 MG/1 ML SYRINGE SC SCH ×2 (08:29→22:00)
[2021-06-27 09:15] VITALS: BP 121/64
[2021-06-27] MEDS ORDERED: PANTOPRAZOLE 40 MG/10 ML VIAL INJ IV SCH (10:00)
[2021-06-27 13:00] VITALS: BP 91/58
[2021-06-27] MEDS: D5W/ SOD CHL 0.9%/KCL 20MEQ 1,000 ML IV SCH (16:18)
[2021-06-27 17:00] VITALS: BP 100/52
[2021-06-27] MEDS ORDERED: ALBUMIN 25% 100 ML IV ONE (19:15)
[2021-06-27] MEDS ORDERED: LORazepam 2MG/ML-1ML VIAL IV PRN (19:30)
[2021-06-27 22:00] VITALS: BP 106/68
[2021-06-27] MEDS: ATORVASTATIN 20 MG TAB PO SCH (22:00)
[2021-06-28] VITALS (14 sets, daily range): BP systolic 80–208; BP diastolic 53–106
[2021-06-28] MEDS ORDERED: dilTIAZem 25 MG/5 ML VIAL IV ONE (00:30)
[2021-06-28] MEDS: D5W/ SOD CHL 0.9%/KCL 20MEQ 1,000 ML IV SCH (01:40)
[2021-06-28] MEDS ORDERED: CLINDAMYCIN 600MG IV 50 ML IV SCH (02:00)
[2021-06-28] MEDS: PENTOXIFYLLINE 400 MG ER TAB PO SCH ×2 (06:00→13:45)
[2021-06-28] MEDS: ALBUMIN 25% 50 ML IV SCH ×3 (06:06→21:27)
[2021-06-28] MEDS: metroNIDAZOLE 500MG/100ML 100 ML IV SCH ×2 (06:07→14:42)
[2021-06-28 08:45] LABS: Albumin 2.6 g/dL (3.4-5.0); Calcium 8.2 mg/dL (8.5-10.1); Magnesium 2.2 mg/dL (1.6-2.6); Potassium 3.9 mmol/L (3.5-5.1)
[2021-06-28 08:46] LABS: INR 1.24 (0.9-1.15); Partial Thromboplastin Time 33.4 sec (23.6-33.0)
[2021-06-28 08:48] LABS: BUN/Creatinine Ratio 13.2; Bilirubin, Total 0.4 mg/dL (0.2-1.0); Phosphorus 2.2 mg/dL (2.5-4.90); Total Protein 6.7 g/dL (6.4-8.2)
[2021-06-28 08:56] LABS: Mean Corpuscular Volume 90.5 fL (80.0-100.0)
[2021-06-28 08:59] LABS: Mean Corpuscular Hemoglobin 28.5 pg (28.0-32.0); Mean Corpuscular Hgb Conc. 31.5 g/dL (32.0-36.0); Red Cell Distribution Width 19.8 % (11.8-14.3)
[2021-06-28 09:06] LABS: Basophils % (manual) 0 (0.0-2.0); Blast Cells 0; Eosinophils % (manual) 0 (0-7); Metamyelocytes % 0; Myelocytes % 0; Promyelocytes % 0; Reactive Lymphocytes 0
[2021-06-28] MEDS: ENOXAPARIN SOD 100 MG/1 ML SYRINGE SC SCH (09:37)
[2021-06-28] MEDS: ASPirin 81 mg TAB PO SCH (09:37)
[2021-06-28] MEDS: cefTRIAXone 1GM/50ML D5W 50 ML IV SCH (09:45)
[2021-06-28] MEDS: PANTOPRAZOLE 40 MG/10 ML VIAL INJ IV SCH ×2 (09:46→21:27)
[2021-06-28 13:51] LABS: Band Neutrophils % (manual) 1; Lymphocytes % (manual) 2 (10.0-50.0); Monocytes % (manual) 7 (0-12)
[2021-06-28] MEDS: MORPHINE SULFATE INJECTION 2 MG/ML SYRG IV PRN (14:39)
[2021-06-28] MEDS ORDERED: ROCURONIUM 10MG/ML 10ML VIAL IV ONE (17:16)
[2021-06-28] MEDS ORDERED: SUCCINYLCHOLINE CHLORIDE 20 MG/ML 10ML VIAL IV ONE (17:16)
[2021-06-28] MEDS ORDERED: ETOMIDATE (2MG/ML) 20ML VIAL IV ONE (17:17)
[2021-06-28] MEDS ORDERED: SODIUM CHLORIDE 0.9% 1,000 ML IV SCH (17:45)
[2021-06-28] MEDS ORDERED: PIPERACILLIN-TAZOB 3.375GM 100 ML IV ONE (17:45)
[2021-06-28] MEDS ORDERED: SODIUM CHLORIDE 0.9% 1,500 ML IV ONE (17:45)
[2021-06-28] MEDS ORDERED: PANTOPRAZOLE 40 MG/10 ML VIAL INJ IV ONE (17:45)
[2021-06-28] MEDS ORDERED: CLINDAMYCIN 900MG IV 50 ML IV ONE (18:00)
[2021-06-28] MEDS ORDERED: phytonadione 5 MG in SODIUM CHL 0.9% 50 ML IV ONE (18:30)
[2021-06-28] MEDS ORDERED: MIDAZOLAM DRIP 50 mg/50mL 50 ML IV ONE (19:12)
[2021-06-28] MEDS ORDERED: MIDAZOLAM DRIP 50 mg/50mL 50 ML IV SCH (19:15)
[2021-06-28] MEDS ORDERED: SODIUM BICARBONATE 8.4% INJ 50ML SYRINGE ONE ×2 (20:32→20:47)
[2021-06-28] MEDS ORDERED: NOREPINEPHRINE 8 MG/250ML KIT 250 ML IV ONE (20:55)
[2021-06-28] MEDS ORDERED: SODIUM BICARBONATE 8.4 % INJ 50ML VIAL IV ONE (21:15)
[2021-06-28] MEDS ORDERED: SODIUM BICARBONATE 50ML VIAL 100 ML in SOD CHL 0.45% 1,000 ML IV SCH (21:15)
[2021-06-28] MEDS: ATORVASTATIN 20 MG TAB PO SCH ×2 (21:27→21:30)
[2021-06-28] MEDS ORDERED: EPINEPHrine HCL 1 MG/10 ML SYRG IV ONE (21:59)
[2021-06-28] MEDS ORDERED: SODIUM BICARBONATE 8.4% INJ 50ML SYRINGE IV ONE (21:59)
[2021-06-28] MEDS ORDERED: PANTOPRAZOLE 40 MG/10 ML VIAL INJ IV SCH (22:00)
[2021-06-28] MEDS ORDERED: ENOXAPARIN SOD 60 MG/0.6 ML SYRINGE SC SCH (22:00)
[2021-06-29] MEDS ORDERED: PIPERACILLIN-TAZOB 3.375GM 100 ML IV SCH
== END 2021-06-28 22:00 | DRG 871 ==
LOC: ER 10:15 → TELE 12:01 → TELE-WESTW 19:50 → ICU WEST 06-28 18:33
PROVIDERS: ADMIT Hospitalist; ATTEND Hospitalist
PROC: 5A1935Z Respiratory Ventilation, Less than 24 Consecutive Hours (ICD-10-PCS; principal; 2021-06-28)
PROC: 0BH17EZ Insertion of Endotracheal Airway into Trachea, Via Natural or Artificial Opening (ICD-10-PCS; 2021-06-28)
PROC: 30233N1 Transfusion of Nonautologous Red Blood Cells into Peripheral Vein, Percutaneous Approach (ICD-10-PCS; 2021-06-28)
DX: A41.9 Sepsis, unspecified organism (principal); G93.41 Metabolic encephalopathy; R53.2 Functional quadriplegia; I21.A1 Myocardial infarction type 2; I63.9 Cerebral infarction, unspecified; J18.9 Pneumonia, unspecified organism; C18.9 Malignant neoplasm of colon, unspecified; D68.59 Other primary thrombophilia; I82.622 Acute embolism and thrombosis of deep veins of left upper extremity; K56.7 Ileus, unspecified; K56.609 Unspecified intestinal obstruction, unspecified as to partial versus complete obstruction; D64.9 Anemia, unspecified; I73.9 Peripheral vascular disease, unspecified; E78.5 Hyperlipidemia, unspecified; F17.210 Nicotine dependence, cigarettes, uncomplicated; I10 Essential (primary) hypertension; R74.01 Elevation of levels of liver transaminase levels; Z20.822 Contact with and (suspected) exposure to COVID-19; F10.129 Alcohol abuse with intoxication, unspecified; R62.7 Adult failure to thrive; Z83.3 Family history of diabetes mellitus; Z85.038 Personal history of other malignant neoplasm of large intestine; Z86.711 Personal history of pulmonary embolism; Z86.718 Personal history of other venous thrombosis and embolism; Z92.21 Personal history of antineoplastic chemotherapy
CPT/HCPCS: 36415; 36600; 70450; 71045; 74018; 74176; 74250; 80053; 80061; 80307; 81001; 82805; 82962; 83036; 83605; 83735; 83880; 84100; 84443; 84484; 85007; 85025; 85027; 85610; 85730; 86850; 86900; 86901; 86920; 87040; 87070; 87077; 87086; 87186; 87205; 87426; 93005; 94002; 96365; 96367; 96372; 96375; 99291; C9113; G0378; J0330; J0696; J2250; J2543; J3430; J3490; P9047